=== PATIENT | male | born 1960 | race Caucasian/White ===

== ENCOUNTER 2016-12-02 09:27 | Inpatient (IN) | payer OTHER ==
[~2016-12-02] VITALS: Ht 175.3 cm; Wt 203.4 kg
[2016-12-02] VITALS (11 sets, daily range): BP systolic 117–156; BP diastolic 60–112
[~2016-12-02 09:27] MED LIST: CIPR500T4 PO; GABA-488 PO; HYDR12.56 PO; IBUP-2055 PO; LEVO500T2 PO; LISI-552 PO; MELO15TA39 PO; METF500T4 PO; METF500T8 PO; NYST1POW22 MC; NYST1POW22 TOP; RT-ALBUINH IH; SIMV20TA3 PO
[2016-12-02] MEDS ORDERED: DILTIAZEM DRIP 100 MG in SODIUM CHLORIDE (ADD-VANTAGE) 100 ML IV SCH (10:15)
[2016-12-02] MEDS ORDERED: ASPIRIN 81 MG CHEW (CHILDREN'S ASA) PO ONE (10:15)
[2016-12-02] MEDS ORDERED: ENOXAPARIN 100 MG/1 ML (LOVENOX) SYR SC ONE ×2 (10:15)
[2016-12-02] MEDS ORDERED: ENOXAPARIN 30 MG/0.3 ML (LOVENOX) SYR SC ONE (10:15)
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
--- NOTE | 2016-12-02 10:25 | Diagnostic Imaging Report ---
Portable upright radiograph of the chest. INDICATION: Irregular cardiac beats. FINDINGS: Borderline cardiac size is seen probably exaggerated by the portable AP technique. There is pulmonary vascular congestion. No focal consolidation. No effusion or pneumothorax. The mediastinum and jasmyn appear unremarkable. IMPRESSION: Borderline cardiac size. Pulmonary vascular congestion. Dictated by: Dictated on workstation # [id number]
[2016-12-02 11:13] LABS: BASOPHILS # (AUTO) 0.1 10^3/uL (0.0-0.1); BASOPHILS % (AUTO) 0 % (0-10); EOSINOPHILS # (AUTO) 0.6 10^3/uL (0.0-0.3); EOSINOPHILS % (AUTO) 5 % (0-10); LYMPHOCYTES # (AUTO) 1.8 X 10^3 (1.0-4.0); LYMPHOCYTES % (AUTO) 15 % (12-44); MEAN CORPUSCULAR HEMOGLOBIN 30 PG (25-34); MEAN CORPUSCULAR HGB CONC 32 G/DL (32-36); MEAN CORPUSCULAR VOLUME 94 FL (80-99); MEAN PLATELET VOLUME 9.8 FL (7.4-10.4); MONOCYTES # (AUTO) 0.9 X 10^3 (0.0-1.0); MONOCYTES % (AUTO) 8 % (0-12); NEUTROPHILS # (AUTO) 8.4 X 10^3 (1.8-7.8); NEUTROPHILS % (AUTO) 72 % (42-75); PLATELET COUNT 237 10^3/uL (130-400); RED BLOOD COUNT 5.09 10^6/uL (4.35-5.85); RED CELL DISTRIBUTION WIDTH 16.3 % (10.0-14.5); WHITE BLOOD COUNT 11.7 10^3/uL (4.3-11.0)
[2016-12-02 11:24] LABS: INR 1.1 (0.8-1.4); PROTHROMBIN TIME PATIENT 13.4 SEC (12.2-14.7)
[2016-12-02 11:32] LABS: ALANINE AMINOTRANSFERASE 30 U/L (0-55); ALBUMIN 3.9 GM/DL (3.2-4.5); AMYLASE 77 U/L (25-125); ANION GAP 8 MMOL/L (5-14); ASPARTATE AMINO TRANSFERASE 23 U/L (5-34); BILIRUBIN,TOTAL 1.4 MG/DL (0.1-1.0); BLOOD UREA NITROGEN 14 MG/DL (7-18); BUN/CREATININE RATIO 17; CALCIUM 9.4 MG/DL (8.5-10.1); CARBON DIOXIDE 28 MMOL/L (21-32); CHLORIDE 104 MMOL/L (98-107); CREATINE KINASE 216 U/L (30-200); CREATININE SERUM 0.81 MG/DL (0.60-1.30); GFR ESTIMATED > 60; GLUCOSE 109 MG/DL (70-105); LIPASE 19 U/L (8-78); MAGNESIUM 2.1 MG/DL (1.8-2.4); POTASSIUM 4.2 MMOL/L (3.6-5.0); SODIUM 140 MMOL/L (135-145)
[2016-12-02 11:51] LABS: TROPONIN I < 0.30 NG/ML (<0.30)
[2016-12-02] MEDS ORDERED: FUROSEMIDE 40 MG/4 ML INJ (LASIX) IVP ONE (12:15)
[2016-12-02] MEDS ORDERED: NITROGLYCERIN SUBLINGUAL 0.4 MG TAB (NITROSTAT) SL PRN (14:15)
[2016-12-02] MEDS ORDERED: DILTIAZEM DRIP 100 MG/NS 100 ML IV SCH ×2 (14:15)
[2016-12-02] MEDS ORDERED: CATHETER FLUSH 10 ML SYR IV PRN (14:15)
[2016-12-02] MEDS ORDERED: morphine INJ 4 MG/ML 1 ML (VIAL/SYRINGE) IV PRN (14:15)
[2016-12-02] MEDS ORDERED: HYDR12.5 PO (14:19)
[2016-12-02] MEDS ORDERED: LISI30TA5 PO (14:35)
[2016-12-02] MEDS ORDERED: FLUT1DIS26 IH (14:35)
[2016-12-02] MEDS ORDERED: ASPI-983 PO (14:35)
[2016-12-02] MEDS ORDERED: TIOT18CA2 IH (14:35)
[2016-12-02 14:56] LABS: BILIRUBIN,URINE NEGATIVE (NEGATIVE); KETONES,URINE NEGATIVE (NEGATIVE); LEUKOCYTE ESTERASE ,URINE 3+ (NEGATIVE); NITRITE,URINE NEGATIVE (NEGATIVE); PH,URINE 6 (5-9); PROTEIN,URINE NEGATIVE (NEGATIVE); UROBILINOGEN,URINE NORMAL (NORMAL)
[2016-12-02] MEDS: inSUlin (REGULAR) HUMAN 1 UNIT/0.01 ML (CHARGE PER UNIT) SC SCH ×2 (16:00→21:27)
[2016-12-02] MEDS ORDERED: RIVAROXABAN 20 MG TABLET (XARELTO) PO SCH (17:00)
--- NOTE | 2016-12-02 17:06 | Consultation-Cardiology ---
HPI-Cardiology Cardiology Consultation: Date of Consultation 12/02/16 Date of Admission Attending Physician Jasmyn Corley MD Admitting Physician [facility] Kareen CAMPOVERDE MD HPI: Time Seen by Provider: 17:01 Chief Complaint: Shortness of breath This is a 56-year-old gentleman with history of morbid obesity, active smoking, quit 3 weeks ago, who has been having shortness of breath for at least a month. He has also been having some palpitations for at least a few years. He was found to be in atrial fibrillation with rapid ventricular rate. He denies any chest pain, syncope or near syncope. He has significant lower extremity swelling. According to the patient a physician once told him that he may have had a silent CA in the past. No further details are available. Denies diabetes. Has high blood pressure. Review of Systems-Cardiology Review of Systems Constitutional: No As described under HPI, No no symptoms reported, No chills, No fever, No lightheadedness, No malaise, No tiredness, No weight loss, No weight gain, No other Eyes: No As described under HPI, No no symptoms reported, No blindness, No blurred vision, No contact lenses, No drainage, No decreased acuity, No foreign body sensation, No glasses, No inflammation, No pain, No photophobia, No previous injury, No shadows, No tunnel vision, No other, No vision change Ears/Nose/Throat: No As described under HPI, No no symptoms reported, No chronic hearing loss, No epistaxis, No ear discharge, No ear pain, No loose teeth, No mouth pain, No mouth swelling, No nasal drainage, No nose pain, No recent hearing loss, No throat pain, No throat swelling, No ulcerations, No other Respiratory: shortness of breath Cardiovascular: irregular heart rate Gastrointestinal: No no symptoms reported, No As described under HPI, No abdomen distended, No abdominal pain, No blood streaked bowels, No constipation , No diarrhea, No difficulty swallowing, No nausea, No poor appetite, No poor fluid intake, No rectal bleeding, No vomiting, No other, No nausea/vomiting/ diarrhea, No stool coloration changes Genitourinary: No no symptoms reported, No As described under HPI, No burning, No dysuria, No discharge, No frequency, No flank pain, No hematuria, No incontinence, No pain, No urgency, No other, No urine frequency changes, No urine coloration changes Skin: No no symptoms reported, No As described under HPI, No change in color, No change in hair/nails, No dryness, No lesions, No lumps, No rash, No other, No skin related problems, No ulcerations, rash on exposed areas, No ulcerations on exposed areas Psychiatric/Neurological: No As described under HPI, No anxiety, No depression , No emotional problems, No focal weakness, No headache, No no symptoms reported , No numbness, No other, No pre-existing deficit, No seizure, No syncope, No tingling, No tremors, No weakness [id number] Hx Patient Social History Alcohol Use: Denies Use Recreational Drug Use: Yes Drug of Choice: CURRENT POT SMOKER, HX OF METH USE 30 YEARS AGO Smoking Status: Former Smoker Type Used: Smokeless Tobacco Recent Foreign Travel: No Recent Infectious Disease Expo: No Physical Abuse Screen: No Sexual Abuse: No Immunizations Up To Date Date of Pneumonia Vaccine: Sep 04, 2014 Past Medical History PMH As described under Assessment. Allergies and Home Medications Allergies Coded Allergies: iodine (Verified Allergy, Mild, 09/18/15) Home Medications Albuterol Sulfate 6.7 Gm Hfa.aer.ad, 2 PUFF IH QID PRN for SHORTNESS OF BREATH, (Reported) Aspirin 81 Mg Tablet.dr, 81 MG PO DAILY, (Reported) Fluticasone/Salmeterol 1 Each Blst.w.dev, 1 PUFF IH BID, (Reported) Hydrochlorothiazide 12.5 Mg Capsule, 12.5 MG PO DAILY, (Reported) Lisinopril 30 Mg Tablet, 30 MG PO DAILY, (Reported) Meloxicam 15 Mg Tablet, 15 MG PO DAILY, (Reported) Metformin HCl 500 Mg Tab.er.24h, 500 MG PO 1800, (Reported) Tiotropium Parker 1 Inh Aerp, 1 CAP IH 1800, (Reported) Physical Exam-Cardiology Physical Exam Vital Signs/I&O Vital Sign - Last 12Hours 12/02/16 12/02/16 12/02/16 12/02/16 09:30 09:35 11:09 11:11 Temp 97.5 98.5 98.5 Pulse 120 118 Resp 20 20 B/P (MAP) 137/109 137/109 Pulse Ox 95 95 94 O2 Delivery Nasal Cannula Nasal Cannula O2 Flow Rate 2.00 12/02/16 12/02/16 12/02/16 12/02/16 11:12 11:12 11:13 13:15 Temp 98.5 98.5 98.5 Pulse Ox 95 O2 Delivery Nasal Cannula O2 Flow Rate 2.00 12/02/16 12/02/16 12/02/16 12/02/16 13:15 13:25 14:00 15:00 Temp 98.2 Pulse 112 100 108 97 Resp 18 18 17 B/P (MAP) 141/103 144/86 123/88 Pulse Ox 95 95 94 O2 Delivery Nasal Cannula Nasal Cannula Nasal Cannula O2 Flow Rate 2.00 2.00 2.00 12/02/16 12/02/16 12/02/16 15:05 16:00 16:53 Pulse 98 98 Resp 10 B/P (MAP) 118/91 128/103 Pulse Ox 96 96 O2 Delivery Nasal Cannula Nasal Cannula O2 Flow Rate 2.00 2.00 Capillary Refill : Less Than 3 Seconds Constitutional: No appears stated age, No AAO x 3, No apparent distress, No PERRL, No well-developed, No well-nourished, No other HEENT: No PERRL, No normal ENT inspection, No TMs normal, No pharynx normal, No scleral icterus (R), No scleral icterus (L), No pale conjunctivae (R), No pale conjunctivae (L), No photophobia, No TM abnormal (R), No TM abnormal (L), No pharyngeal erythema, No tonsillar exudate, No other, No discharge, No EOMI, No hearing is well preserved, No hard of hearing, No oral hygience is good, No ulceration, No xanthelasmas are seen Neck: No non-tender, No full range of motion, No supple, No normal inspection, No carotid bruit, No limited range of motion, No lymphadenopathy (R), No lymphadenopathy (L), No tender lateral, No tender midline, No thyromegaly, No other, No carotid pulses are 2 + bilaterally, No with good upstrokes Respiratory: No accessory muscle use, No respiratory distress, No chest tender , No chest expansion is symmetric, No chest is bilaterally symmetric, No lungs clear to percussion, No lungs clear to auscultation, No crackles, No rhonchi, No rales, No stridor, No wheezing, No pleural rub, No other Cardiovascular: irregularly irregular, edema, tachycardia, S1 and S2 Gastrointestinal: No tender, No soft, No round, No distended, No pulsatile mass , No organomegaly, No guarding, No rebound, No tenderness, No hernia, No mass, No audible bowel sounds, No abnormal bowel sounds, No abdominal bruits, No spleenomegaly, No other Rectal: deferred Extremities: significant edema Neurologic/Psychiatric: No music director II-XII nml as tested, No no motor/sensory deficits, No alert, No normal mood/affect, No oriented x 3, No abnormal cerebellar tests, No abnormal music director II-XII, No abnormal gait, No aphasia, No EOM palsy, No facial droop, No motor weakness, No sensory deficit, No depressed affect, No disoriented x 3, No other, No grossly intact, No power is 5/5 both on sides Data Review Labs Laboratory Tests 12/02/16 11:05: White Blood Count 11.7H, Red Blood Count 5.09, Hemoglobin 15.0, Hematocrit 48, Mean Corpuscular Volume 94, Mean Corpuscular Hemoglobin 30, Mean Corpuscular Hemoglobin Concent 32, Red Cell Distribution Width 16.3H, Platelet Count 237, Mean Platelet Volume 9.8, Neutrophils (%) (Auto) 72, Lymphocytes (%) (Auto) 15, Monocytes (%) (Auto) 8, Eosinophils (%) (Auto) 5, Basophils (%) (Auto) 0, Neutrophils # (Auto) 8.4H, Lymphocytes # (Auto) 1.8, Monocytes # (Auto) 0.9, Eosinophils # (Auto) 0.6H, Basophils # (Auto) 0.1, Prothrombin Time 13.4, INR Comment 1.1, Activated Partial Thromboplast Time 31, Sodium Level 140, Potassium Level 4.2, Chloride Level 104, Carbon Dioxide Level 28, Anion Gap 8, Blood Urea Nitrogen 14, Creatinine 0.81, Estimat Glomerular Filtration Rate > 60 , BUN/Creatinine Ratio 17, Glucose Level 109H, Calcium Level 9.4, Magnesium Level 2.1, Total Bilirubin 1.4H, Aspartate Amino Transf (AST/SGOT) 23, Alanine Aminotransferase (ALT/SGPT) 30, Alkaline Phosphatase 100, Total Creatine Kinase 216H, Creatine Kinase MB 3.4, Troponin I < 0.30, B-Type Natriuretic Peptide 155.4H, Total Protein 7.0, Albumin 3.9, Amylase Level 77, Lipase 19, TSH [place] Testing 0.89 12/02/16 14:40: Urine Color YELLOW, Urine Clarity CLEAR, Urine pH 6, Urine Specific [place] 1.020, Urine Protein NEGATIVE, Urine Glucose (UA) NEGATIVE, Urine Ketones NEGATIVE, Urine Nitrite NEGATIVE, Urine Bilirubin NEGATIVE, Urine Urobilinogen NORMAL, Urine Leukocyte Esterase 3+H, Urine RBC (Auto) 1+H, Urine RBC NONE, Urine WBC 5-10H, Urine Squamous Epithelial Cells 2-5, Urine Crystals NONE, Urine Bacteria MODERATEH, Urine Casts NONE, Urine Mucus NEGATIVE, Urine Culture Indicated YES, Urine Opiates Screen NEGATIVE, Urine Oxycodone Screen NEGATIVE, Urine Methadone Screen NEGATIVE, Urine Propoxyphene Screen NEGATIVE, Urine Barbiturates Screen NEGATIVE, Ur Tricyclic Antidepressants Screen NEGATIVE, Urine Phencyclidine Screen NEGATIVE, Urine Amphetamines Screen NEGATIVE, Urine Methamphetamines Screen NEGATIVE, Urine Benzodiazepines Screen NEGATIVE, Urine Cocaine Screen NEGATIVE, Urine Cannabinoids Screen POSITIVEH ECG Impression ECG Initial ECG Impression: Atrial Fibrillation w/RVR A/P-Cardiology Assessment/Admission Diagnosis Atrial fibrillation with rapid ventricular rate, Shortness of breath, Possible coronary artery disease, Venous insufficiency, Sleep apnea, COPD, Active smoking Plan Atrial fibrillation with rapid ventricular rate: Continue Cardizem infusion. Starts Xarelto since CHADSVASC is 2 or 3 (HTN, ?old CA, ? CHF). Start by mouth Cardizem tonight. If good heart rate control, we may be able to taper off Cardizem infusion. Discussed at length pathophysiology of atrial fibrillation. Shortness of breath: Likely due to atrial fibrillation and COPD. We will request echocardiogram. BNP is not significantly elevated. Possible coronary artery disease: Will need a stress test as an outpatient. Venous insufficiency, Sleep apnea: Sleep study as an outpatient. COPD, Active smoking: Quit 3 weeks ago. He was congratulated on non smoking behavior. Thank you for your consultation. Please call me if you have any questions. Rani Campoverde MD, FACP, FACC, FSCAI, FHRS, CCDS Interventional Cardiology Cardiac Electrophysiology Vascular Medicine and Endovascular Interventions Clinical Quality Measures DVT/VTE Risk/Contraindication: Risk Factor Score Per Nursin RFS Level Per Nursing on Admit: 4+=Very High Kareen CAMPOVERDE MD Dec 02, 2016 5:06 pm
[2016-12-02] MEDS ORDERED: FUROSEMIDE 40 MG/4 ML INJ (LASIX) IVP NR (18:00)
[2016-12-02] MEDS ORDERED: DILTIAZEM 240 MG (CARDIZEM CD) CAP PO NR (20:00)
[2016-12-02] MEDS: CATHETER FLUSH 10 ML SYR IV SCH (21:27)
[2016-12-03] VITALS (14 sets, daily range): BP systolic 116–159; BP diastolic 74–111
[2016-12-03 04:27] LABS: BASOPHILS % (AUTO) 0 % (0-10); EOSINOPHILS # (AUTO) 0.5 10^3/uL (0.0-0.3); EOSINOPHILS % (AUTO) 4 % (0-10); LYMPHOCYTES # (AUTO) 2.1 X 10^3 (1.0-4.0); LYMPHOCYTES % (AUTO) 18 % (12-44); MEAN CORPUSCULAR HEMOGLOBIN 30 PG (25-34); MEAN CORPUSCULAR HGB CONC 32 G/DL (32-36); MEAN CORPUSCULAR VOLUME 93 FL (80-99); MEAN PLATELET VOLUME 10.7 FL (7.4-10.4); MONOCYTES # (AUTO) 0.9 X 10^3 (0.0-1.0); MONOCYTES % (AUTO) 8 % (0-12); NEUTROPHILS # (AUTO) 7.9 X 10^3 (1.8-7.8); NEUTROPHILS % (AUTO) 69 % (42-75); PLATELET COUNT 226 10^3/uL (130-400); RED BLOOD COUNT 4.88 10^6/uL (4.35-5.85); RED CELL DISTRIBUTION WIDTH 16.2 % (10.0-14.5); WHITE BLOOD COUNT 11.4 10^3/uL (4.3-11.0)
[2016-12-03 05:24] LABS: ALANINE AMINOTRANSFERASE 30 U/L (0-55); ALBUMIN 3.7 GM/DL (3.2-4.5); ANION GAP 16 MMOL/L (5-14); ASPARTATE AMINO TRANSFERASE 22 U/L (5-34); BILIRUBIN,TOTAL 1.9 MG/DL (0.1-1.0); BLOOD UREA NITROGEN 17 MG/DL (7-18); BUN/CREATININE RATIO 21; CALCIUM 8.6 MG/DL (8.5-10.1); CARBON DIOXIDE 23 MMOL/L (21-32); CHLORIDE 101 MMOL/L (98-107); CHOLESTEROL 162 MG/DL (< 200); CREATININE SERUM 0.81 MG/DL (0.60-1.30); DIRECT LDL 121 MG/DL (1-129); GFR ESTIMATED > 60; GLUCOSE 101 MG/DL (70-105); POTASSIUM 3.7 MMOL/L (3.6-5.0); SODIUM 140 MMOL/L (135-145); TOTAL PROTEIN 6.5 GM/DL (6.4-8.2); TRIGLYCERIDES 142 MG/DL (<150); VLDL CHOLESTEROL 28 MG/DL (5-40)
[2016-12-03] MEDS: inSUlin (REGULAR) HUMAN 1 UNIT/0.01 ML (CHARGE PER UNIT) SC SCH ×2 (06:07→11:03)
[2016-12-03] MEDS: CATHETER FLUSH 10 ML SYR IV SCH ×2 (06:08→14:42)
--- NOTE | 2016-12-03 07:32 | Diagnostic Imaging Report ---
INDICATION: COPD. CHF. COMPARISON: 12/02/2016 FINDINGS: Single frontal view of the chest was obtained. Cardiac silhouette and pulmonary vasculature have an unremarkable appearance on today's exam. The lungs are well aerated and clear. No large pleural effusion or pneumothorax is seen. The visualized osseous structures show no acute abnormalities. IMPRESSION: 1. No acute cardiopulmonary process. Dictated by: Dictated on workstation # [id number]
[2016-12-03] MEDS ORDERED: ASPIRIN E.C. 325 MG (ECOTRIN) TABLET PO SCH (09:00)
[2016-12-03] MEDS ORDERED: DILTIAZEM 120 MG (CARDIZEM CD) CAP PO SCH (09:00)
--- NOTE | 2016-12-03 12:27 | Cardiology Progress Note ---
Cardiology SOAP Progress Note Subjective: No complaints Objective: I&O/Vital Signs Vital Sign - Last 12Hours 12/03/16 12/03/16 12/03/16 12/03/16 01:00 01:00 02:00 03:00 Pulse 92 88 106 102 Resp 22 13 13 B/P (MAP) 140/96 118/105 Pulse Ox 92 92 92 O2 Delivery Nasal Cannula Nasal Cannula Nasal Cannula O2 Flow Rate 2.00 2.00 2.00 12/03/16 12/03/16 12/03/16 12/03/16 04:00 04:00 04:00 05:00 Temp 97.8 Pulse 96 96 Resp 22 22 B/P (MAP) 120/74 159/105 Pulse Ox 91 91 O2 Delivery Nasal Cannula Nasal Cannula Nasal Cannula O2 Flow Rate 2.00 2.00 2.00 12/03/16 12/03/16 12/03/16 12/03/16 06:00 07:00 08:00 08:00 Temp 98.3 Pulse 82 60 Resp 17 B/P (MAP) 145/75 Pulse Ox 91 O2 Delivery Nasal Cannula Nasal Cannula Nasal Cannula O2 Flow Rate 2.00 2.00 2.00 12/03/16 12/03/16 12:00 12:00 Temp 98.5 B/P (MAP) O2 Delivery Nasal Cannula Nasal Cannula O2 Flow Rate 2.00 2.00 Intake and Output 12/03/16 00:00 Intake Total 1000 ml Output Total 3800 ml Balance -2800 ml Weight (Pounds): 448 Weight (Ounces): 8.0 Weight (Calculated Kilograms): 203.661749 Constitutional: No appears stated age, No AAO x 3, No apparent distress, No PERRL, No well-developed, No well-nourished, No other Respiratory: No accessory muscle use, No respiratory distress, No chest tender , No chest expansion is symmetric, No chest is bilaterally symmetric, No lungs clear to percussion, No lungs clear to auscultation, No crackles, No rhonchi, No rales, No stridor, No wheezing, No pleural rub, No other Cardiovascular: irregularly irregular, edema, tachycardia, S1 and S2 Gastrointestional: No tender, No soft, No round, No distended, No pulsatile mass, No organomegaly, No guarding, No rebound, No tenderness, No hernia, No mass, No audible bowel sounds, No abnormal bowel sounds, No abdominal bruits, No spleenomegaly, No other Extremities: significant edema Neurologic/Psychiatric: No talent scout II-XII nml as tested, No no motor/sensory deficits, No alert, No normal mood/affect, No oriented x 3, No abnormal cerebellar tests, No abnormal talent scout II-XII, No abnormal gait, No aphasia, No EOM palsy, No facial droop, No motor weakness, No sensory deficit, No depressed affect, No disoriented x 3, No other, No grossly intact, No power is 5/5 both on sides Results/Procedures: Labs Laboratory Tests 12/02/16 14:40: Urine Color YELLOW, Urine Clarity CLEAR, Urine pH 6, Urine Specific [place] 1.020, Urine Protein NEGATIVE, Urine Glucose (UA) NEGATIVE, Urine Ketones NEGATIVE, Urine Nitrite NEGATIVE, Urine Bilirubin NEGATIVE, Urine Urobilinogen NORMAL, Urine Leukocyte Esterase 3+H, Urine RBC (Auto) 1+H, Urine RBC NONE, Urine WBC 5-10H, Urine Squamous Epithelial Cells 2-5, Urine Crystals NONE, Urine Bacteria MODERATEH, Urine Casts NONE, Urine Mucus NEGATIVE, Urine Culture Indicated YES, Urine Opiates Screen NEGATIVE, Urine Oxycodone Screen NEGATIVE, Urine Methadone Screen NEGATIVE, Urine Propoxyphene Screen NEGATIVE, Urine Barbiturates Screen NEGATIVE, Ur Tricyclic Antidepressants Screen NEGATIVE, Urine Phencyclidine Screen NEGATIVE, Urine Amphetamines Screen NEGATIVE, Urine Methamphetamines Screen NEGATIVE, Urine Benzodiazepines Screen NEGATIVE, Urine Cocaine Screen NEGATIVE, Urine Cannabinoids Screen POSITIVEH 12/02/16 16:08: Glucometer 102 12/02/16 17:05: Troponin I < 0.30 12/02/16 21:15: Glucometer 96 12/03/16 03:18: White Blood Count 11.4H, Red Blood Count 4.88, Hemoglobin 14.7, Hematocrit 46, Mean Corpuscular Volume 93, Mean Corpuscular Hemoglobin 30, Mean Corpuscular Hemoglobin Concent 32, Red Cell Distribution Width 16.2H, Platelet Count 226, Mean Platelet Volume 10.7H, Neutrophils (%) (Auto) 69, Lymphocytes (%) (Auto) 18 , Monocytes (%) (Auto) 8, Eosinophils (%) (Auto) 4, Basophils (%) (Auto) 0, Neutrophils # (Auto) 7.9H, Lymphocytes # (Auto) 2.1, Monocytes # (Auto) 0.9, Eosinophils # (Auto) 0.5H, Basophils # (Auto) 0.0, Sodium Level 140, Potassium Level 3.7, Chloride Level 101, Carbon Dioxide Level 23, Anion Gap 16H, Blood Urea Nitrogen 17, Creatinine 0.81, Estimat Glomerular Filtration Rate > 60, BUN/ Creatinine Ratio 21, Glucose Level 101, Calcium Level 8.6, Total Bilirubin 1.9H , Aspartate Amino Transf (AST/SGOT) 22, Alanine Aminotransferase (ALT/SGPT) 30, Alkaline Phosphatase 90, Total Protein 6.5, Albumin 3.7, Triglycerides Level 142 , Cholesterol Level 162, LDL Cholesterol Direct 121, VLDL Cholesterol 28, HDL Cholesterol 30L Microbiology 12/02/16 Urine Culture - Preliminary, Resulted Gram Negative Esvin A/P: Assessment/Dx: Atrial fibrillation with rapid ventricular rate, Shortness of breath, Possible coronary artery disease, Venous insufficiency, Sleep apnea, COPD, Active smoking Plan: Atrial fibrillation with rapid ventricular rate: Better controlled today. Was started on by mouth Cardizem last night. Cardizem infusion was switched off rewind operator. We gave another dose of Cardizem 120 mg this morning. He will go out on Cardizem CD 360 mg daily. He will also continue oral anticoagulation therapy. Can see us in the office in the next one month. Shortness of breath: Likely due to atrial fibrillation and COPD. We will request echocardiogram. BNP is not significantly elevated. Possible coronary artery disease: Will need a stress test as an outpatient. Venous insufficiency, Sleep apnea: Sleep study as an outpatient. COPD, Thank you for your consultation. Please call me if you have any questions. Rani Campoverde MD, FACP, FACC, FSCAI, FHRS, CCDS Interventional Cardiology Cardiac Electrophysiology Vascular Medicine and Endovascular Interventions Kareen CAMPOVERDE MD Dec 03, 2016 12:27
[2016-12-03] MEDS ORDERED: DILT360C29 PO (12:38)
[2016-12-03] MEDS ORDERED: RIVA20TA PO (12:38)
--- NOTE | 2016-12-03 12:46 | Discharge Instructions ---
Discharge Inst-[facility] Discharge Medications New, Converted or Re-Newed RX: Other (Diltiazem will be at [facility] from the repository) New Medications: Diltiazem HCl (Diltiazem 24Hr Cd) 360 Mg Cap.er.24h 360 MG PO DAILY for 30 Days, #30 CAP Rivaroxaban (Xarelto) 20 Mg Tablet 20 MG PO DAILY@1700 for 30 Days, #30 TAB Continued Medications: Albuterol Sulfate (Proventil Hfa) 6.7 Gm Hfa.aer.ad 2 PUFF IH QID PRN for SHORTNESS OF BREATH, INHALER Aspirin (Aspirin EC) 81 Mg Tablet.dr 81 MG PO DAILY, TAB Fluticasone/Salmeterol (Advair 250-50 Diskus) 1 Each Blst.w.dev 1 PUFF IH BID Hydrochlorothiazide (Hydrochlorothiazide) 12.5 Mg Capsule 12.5 MG PO DAILY, CAP Lisinopril (Lisinopril) 30 Mg Tablet 30 MG PO DAILY, TAB Meloxicam (Meloxicam) 15 Mg Tablet 15 MG PO DAILY, TAB Metformin HCl (Metformin HCl ER) 500 Mg Tab.er.24h 500 MG PO 1800, TAB Tiotropium [place] (Spiriva) 1 Inh Aerp 1 CAP IH 1800, INHALER Patient Instructions Goal/Follow Up Appt: You have a follow up appt with Samira Drummond on December 08 @1120 AM Patient Instructions: - Make sure to take your new medications - Call with any concerns Return to The Hospital For: - Increasing shortness of breath - Chest pain - Bleeding Activity & Diet Discharge Diet: Low Sodium Diet, Cardiac Diet Activity as Tolerated: Yes Copy Copies To 1: [facility] GIUSEPPE Lester MD Dec 03, 2016 12:46
--- NOTE | 2016-12-03 12:52 | Short Stay Summary ---
HPI History of Present Illness: 56 yo morbidly obese M that presented to ER after ECG in clinic showed atrial fibrillation. Patient states that he has been having about 1 month of increasing shortness of breath. Yesterday was called by PCP that his CXR looked like he had an enlarged heart and needed an ECG. ECG then showed Atrial fibrillation with RVR rate 120s Source: patient, family Exam Limitations: no limitations Date seen by provider: Dec 03, 2016 Time Seen by Provider: 10:45 Attending Physician Giuseppe Corley MD PCP [facility] Consult Date of Admission Dec 02, 2016 at 12:10 Home Medications Home Medications Reviewed patient Home Medication Reconciliation Form Allergies Coded Allergies: iodine (Verified Allergy, Mild, 09/18/15) OOA-Mmqise-Rawcgz Hx Patient Social History Alcohol Use: Denies Use Recreational Drug Use: Yes (THC) Drug of Choice: CURRENT POT SMOKER, HX OF METH USE 30 YEARS AGO Smoking Status: Current Everyday Smoker (2 PPD) Type Used: Cigarettes Recent Foreign Travel: No Contact w/other who traveled: No Recent Hopitalizations: No Recent Infectious Disease Expo: No Physical Abuse Screen: No Sexual Abuse: No Immunizations Up To Date Date of Pneumonia Vaccine: Sep 04, 2014 Past Medical History Morbid Obesity COPD Review of Systems ([facility]) Constitutional: weakness, No weight gain, No weight loss EENTM: no symptoms reported Respiratory: dyspnea on exertion, No hemoptysis, orthopnea, short of breath Cardiovascular: No chest pain, No edema, No palpitations Gastrointestinal: no symptoms reported, No abdominal pain, No constipation, No diarrhea, No nausea, No vomiting Genitourinary: no symptoms reported, No dysuria, No frequency, No hematuria Musculoskeletal: no symptoms reported, No back pain, No joint pain, No muscle pain Skin: no symptoms reported Psychiatric/Neurological: No Symptoms Reported, Denies Anxiety, Denies Depressed Reviewed Test Results Reviewed Test Results Lab Laboratory Tests Test 12/02/16 14:40 12/02/16 16:08 12/02/16 17:05 12/02/16 21:15 Range/Units Urine Color YELLOW Urine Clarity CLEAR Urine pH 6 5-9 Urine Specific [place] 1.020 1.016-1.022 Urine Protein NEGATIVE NEGATIVE Urine Glucose (UA) NEGATIVE NEGATIVE Urine Ketones NEGATIVE NEGATIVE Urine Nitrite NEGATIVE NEGATIVE Urine Bilirubin NEGATIVE NEGATIVE Urine Urobilinogen NORMAL NORMAL MG/DL Urine Leukocyte Esterase 3+ H NEGATIVE Urine RBC (Auto) 1+ H NEGATIVE Urine RBC NONE /HPF Urine WBC 5-10 H /HPF Urine Squamous Epithelial Cells 2-5 /HPF Urine Crystals NONE /LPF Urine Bacteria MODERATE H /HPF Urine Casts NONE /LPF Urine Mucus NEGATIVE /LPF Urine Culture Indicated YES Urine Opiates Screen NEGATIVE NEGATIVE Urine Oxycodone Screen NEGATIVE NEGATIVE Urine Methadone Screen NEGATIVE NEGATIVE Urine Propoxyphene Screen NEGATIVE NEGATIVE Urine Barbiturates Screen NEGATIVE NEGATIVE Ur Tricyclic Antidepressants Screen NEGATIVE NEGATIVE Urine Phencyclidine Screen NEGATIVE NEGATIVE Urine Amphetamines Screen NEGATIVE NEGATIVE Urine Methamphetamines Screen NEGATIVE NEGATIVE Urine Benzodiazepines Screen NEGATIVE NEGATIVE Urine Cocaine Screen NEGATIVE NEGATIVE Urine Cannabinoids Screen POSITIVE H NEGATIVE Glucometer 102 96 70-110 MG/DL Troponin I < 0.30 <0.30 NG/ML Test 12/03/16 03:18 12/03/16 10:39 Range/Units White Blood Count 11.4 H 4.3-11.0 10^3/uL Red Blood Count 4.88 4.35-5.85 10^6/uL Hemoglobin 14.7 13.3-17.7 G/DL Hematocrit 46 40-54 % Mean Corpuscular Volume 93 80-99 FL Mean Corpuscular Hemoglobin 30 25-34 PG Mean Corpuscular Hemoglobin Concent 32 32-36 G/DL Red Cell Distribution Width 16.2 H 10.0-14.5 % Platelet Count 226 130-400 10^3/uL Mean Platelet Volume 10.7 H 7.4-10.4 FL Neutrophils (%) (Auto) 69 42-75 % Lymphocytes (%) (Auto) 18 12-44 % Monocytes (%) (Auto) 8 0-12 % Eosinophils (%) (Auto) 4 0-10 % Basophils (%) (Auto) 0 0-10 % Neutrophils # (Auto) 7.9 H 1.8-7.8 X 10^3 Lymphocytes # (Auto) 2.1 1.0-4.0 X 10^3 Monocytes # (Auto) 0.9 0.0-1.0 X 10^3 Eosinophils # (Auto) 0.5 H 0.0-0.3 10^3/uL Basophils # (Auto) 0.0 0.0-0.1 10^3/uL Sodium Level 140 135-145 MMOL/L Potassium Level 3.7 3.6-5.0 MMOL/L Chloride Level 101 98-107 MMOL/L Carbon Dioxide Level 23 21-32 MMOL/L Anion Gap 16 H 5-14 MMOL/L Blood Urea Nitrogen 17 7-18 MG/DL Creatinine 0.81 0.60-1.30 MG/DL Estimat Glomerular Filtration Rate > 60 BUN/Creatinine Ratio 21 Glucose Level 101 70-105 MG/DL Calcium Level 8.6 8.5-10.1 MG/DL Total Bilirubin 1.9 H 0.1-1.0 MG/DL Aspartate Amino Transf (AST/SGOT) 22 5-34 U/L Alanine Aminotransferase (ALT/SGPT) 30 0-55 U/L Alkaline Phosphatase 90 40-136 U/L Total Protein 6.5 6.4-8.2 GM/DL Albumin 3.7 3.2-4.5 GM/DL Triglycerides Level 142 <150 MG/DL Cholesterol Level 162 < 200 MG/DL LDL Cholesterol Direct 121 1-129 MG/DL VLDL Cholesterol 28 5-40 MG/DL HDL Cholesterol 30 L 40-60 MG/DL Glucometer 101 70-110 MG/DL Radiology Date of Exam: 12/02/16 CHEST 1 VIEW, AP/PA ONLY Portable upright radiograph of the chest. INDICATION: Irregular cardiac beats. FINDINGS: Borderline cardiac size is seen probably exaggerated by the portable AP technique. There is pulmonary vascular congestion. No focal consolidation. No effusion or pneumothorax. The mediastinum and jasmyn appear unremarkable. IMPRESSION: Borderline cardiac size. Pulmonary vascular congestion. Physical Exam-([facility]) Physical Exam Vital Signs VS - Last 72 Hours, by Label 12/02/16 12/02/16 12/02/16 12/02/16 09:30 09:35 11:09 11:11 Temp 97.5 98.5 98.5 Pulse 120 118 Resp 20 20 B/P (MAP) 137/109 137/109 Pulse Ox 95 95 94 O2 Delivery Nasal Cannula Nasal Cannula O2 Flow Rate 2.00 12/02/16 12/02/16 12/02/16 12/02/16 11:12 11:12 11:13 12:50 Temp 98.5 98.5 98.5 97.5 Pulse 80 Resp 18 Pulse Ox 98 12/02/16 12/02/16 12/02/16 12/02/16 13:15 13:15 13:25 14:00 Temp 98.2 Pulse 112 100 108 Resp 18 18 B/P (MAP) 141/103 144/86 Pulse Ox 95 95 95 O2 Delivery Nasal Cannula Nasal Cannula Nasal Cannula O2 Flow Rate 2.00 2.00 2.00 12/02/16 12/02/16 12/02/16 12/02/16 15:00 15:05 16:00 16:00 Pulse 97 98 Resp 17 10 B/P (MAP) 123/88 118/91 Pulse Ox 94 96 96 O2 Delivery Nasal Cannula Nasal Cannula Nasal Cannula Nasal Cannula O2 Flow Rate 2.00 2.00 2.00 2.00 12/02/16 12/02/16 12/02/16 12/02/16 16:00 16:53 17:00 18:00 Temp 98.4 Pulse 98 91 103 Resp 20 21 B/P (MAP) 128/103 138/80 130/91 Pulse Ox 96 95 O2 Delivery Nasal Cannula Nasal Cannula Nasal Cannula O2 Flow Rate 2.00 2.00 2.00 12/02/16 12/02/16 12/02/16 12/02/16 19:00 19:00 19:58 20:00 Temp 98.5 Pulse 99 115 Resp 22 B/P (MAP) 129/60 Pulse Ox 91 O2 Delivery Nasal Cannula Nasal Cannula O2 Flow Rate 2.00 2.00 12/02/16 12/02/16 12/02/16 12/02/16 20:00 20:00 21:00 22:00 Pulse 93 101 135 Resp 22 22 27 B/P (MAP) 147/71 139/77 117/78 Pulse Ox 91 94 97 O2 Delivery Nasal Cannula Nasal Cannula Nasal Cannula Nasal Cannula O2 Flow Rate 2.00 2.00 2.00 2.00 12/02/16 12/03/16 12/03/16 12/03/16 23:00 00:00 00:00 00:00 Temp 98.3 Pulse 117 123 Resp 14 30 B/P (MAP) 156/112 Pulse Ox 94 90 O2 Delivery Nasal Cannula Nasal Cannula Nasal Cannula O2 Flow Rate 2.00 2.00 2.00 12/03/16 12/03/16 12/03/16 12/03/16 00:02 01:00 01:00 02:00 Pulse 98 92 88 106 Resp 22 13 B/P (MAP) 176/103 140/96 Pulse Ox 92 92 O2 Delivery Nasal Cannula Nasal Cannula O2 Flow Rate 2.00 2.00 12/03/16 12/03/16 12/03/16 12/03/16 03:00 04:00 04:00 04:00 Temp 97.8 Pulse 102 96 Resp 13 22 B/P (MAP) 118/105 120/74 Pulse Ox 92 91 O2 Delivery Nasal Cannula Nasal Cannula Nasal Cannula O2 Flow Rate 2.00 2.00 2.00 12/03/16 12/03/16 12/03/16 12/03/16 05:00 06:00 07:00 08:00 Pulse 96 82 60 Resp 22 17 B/P (MAP) 159/105 145/75 Pulse Ox 91 91 O2 Delivery Nasal Cannula Nasal Cannula Nasal Cannula O2 Flow Rate 2.00 2.00 2.00 12/03/16 12/03/16 12/03/16 08:00 12:00 12:00 Temp 98.3 98.5 B/P (MAP) O2 Delivery Nasal Cannula Nasal Cannula Nasal Cannula O2 Flow Rate 2.00 2.00 2.00 Capillary Refill : Less Than 3 Seconds General Appearance: WD/WN, mild distress (with activity), obese HEENT: PERRL/EOMI Neck: non-tender, full range of motion, supple, normal inspection Respiratory: chest non-tender, normal breath sounds, no respiratory distress Cardiovascular: normal peripheral pulses, no edema, no murmur, irregularly irregular Gastrointestinal: normal bowel sounds, non tender, soft, no organomegaly Extremities: normal range of motion, non-tender, normal inspection, no pedal edema, no calf tenderness, normal capillary refill Neurologic/Psychiatric: 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 as tested, no motor/sensory deficits, alert, normal mood/affect, oriented x 3 Skin: normal color, warm/dry Lymphatic: no adenopathy Short Stay Diagnosis Discharge Diagnosis-Short Stay Admission Diagnosis Atrial Fibrillation with RVR Morbid Obesity Respiratory Distress with Hypoxia COPD HTN Final Discharge Diagnosis See Above Conclusion Plan 56 yo M that presents to ED with A Fib with RVR Plan Atrial fibrillation with RVR - Regular rate this AM - Started on PO diltiazem per Cardiology - Started on anti coagulation due to well score - Echo pending Morbid obesity - Needs outpatient sleep study as this is likely contributing to Atrial fibrillation Respiratory Distress with Hypoxia - titrate off oxygen, A/A nebs scheduled COPD - Restarted home medications HTN - Restarted home medications Home today with close followup Clinical Quality Measures DVT/VTE Risk/Contraindication: Risk Factor Score Per Nursin RFS Level Per Nursing on Admit: 4+=Very High Copy Copies To 1: [facility] Lester MD Dec 03, 2016 12:52
[2016-12-03] MEDS ORDERED: RT-ALBUTEROL/IPRATROPIUM 3 ML (DUONEB) VIAL INH SCH (14:00)
[2016-12-04] MEDS ORDERED: lisINopril 20 MG (ZESTRIL) TAB PO SCH (09:00)
[2016-12-04] MEDS ORDERED: lisINopril 10 MG (PRINIVIL) TAB PO SCH (09:00)
[2016-12-04] MEDS ORDERED: HYDROCHLOROTHIAZIDE 12.5 MG (HCTZ) CAP PO SCH (09:00)
== END 2016-12-03 15:50 | disposition home or self-care (01) | DRG 309 ==
LOC: EDUNIT# 09:27 → ER 09:29 → ICU 12:10
PROVIDERS: ADMIT Family Medicine; ATTEND Family Medicine
DX: I48.91 Unspecified atrial fibrillation (principal); J44.9 Chronic obstructive pulmonary disease, unspecified; I87.2 Venous insufficiency (chronic) (peripheral); I10 Essential (primary) hypertension; E66.01 Morbid (severe) obesity due to excess calories; Z68.44 Body mass index [BMI] 60.0-69.9, adult; E11.9 Type 2 diabetes mellitus without complications; L03.115 Cellulitis of right lower limb; L03.116 Cellulitis of left lower limb; B19.20 Unspecified viral hepatitis C without hepatic coma; F12.90 Cannabis use, unspecified, uncomplicated; F17.210 Nicotine dependence, cigarettes, uncomplicated; R07.9 Chest pain, unspecified; G47.30 Sleep apnea, unspecified
CPT/HCPCS: 36415; 71010; 80053; 80061; 80306; 81000; 82150; 82550; 82553; 82962; 83690; 83735; 83880; 84443; 84484; 85025; 85610; 85730; 87077; 87081; 87088; 87186; 93005; 93041; 93306; 96365; 96366; 96372

== ENCOUNTER 2017-01-15 19:15 | Outpatient (CLI) | payer SELFPAY ==
[~2017-01-15 19:15] MED LIST changes: +ASPI-983 PO; +DILT360C29 PO; +FLUT1DIS26 IH; +HYDR12.5 PO; +LISI30TA5 PO; +RIVA20TA PO; +TIOT18CA2 IH
== END 2017-01-16 06:55 | disposition home or self-care (01) ==
LOC: SLEEP 19:15
PROVIDERS: ATTEND Internal Medicine Cardiovascular Disease
DX: G47.33 Obstructive sleep apnea (adult) (pediatric) (principal)
CPT/HCPCS: 95810

== ENCOUNTER 2017-01-27 20:47 | Outpatient (CLI) | payer OTHER | END 2017-01-28 06:55 | disposition home or self-care (01) | LOC: SLEEP 20:47 | PROVIDERS: ATTEND Internal Medicine Cardiovascular Disease | DX: G47.33 Obstructive sleep apnea (adult) (pediatric) (principal) | CPT/HCPCS: 95811 ==

== ENCOUNTER → 2017-02-02 | Outpatient (CLI) | payer OTHER ==
[~2017-02-02] VITALS: Ht 177.8 cm; Wt 192.3 kg
[~2017-02-02] MED LIST changes: +ATOR20TA49 PO; +BUSP10TA95 PO; +CATHETER FLUSH 10 ML SYR IV PRN; +DRON400T2 PO; +FURO20TA4 PO; +IBUP-30 PO; +METO-333 PO; +REGADENOSON 0.4 MG/5 ML SYR (LEXISCAN) IV ONE; +UMEC62.5 IH; +meTOprolol 5 MG/5 ML (LOPRESSOR) VIAL IV ONE; +meTOprolol 5 MG/5 ML (LOPRESSOR) VIAL ONE
--- NOTE | 2017-02-03 09:42 | STRESS TEST ---
DATE OF SERVICE: 02/02/2017 LEXISCAN MYOVIEW STRESS TEST REPORT REFERRING PHYSICIAN: [facility] Baseline heart rate is 130, baseline blood pressure is 150/90. Baseline EKG is atrial fibrillation with no EKG changes. In summary, the patient was injected with 10.6 mCi of technetium-99 Myoview and the resting images were obtained. Then, the patient received 0.4 mg of Lexiscan followed by 31.3 mCi of technetium-99 Myoview. Later during the test, patient was given 5 mg of IV Lopressor due to tachycardia. During recovery, heart rate and blood pressure returned to baseline. EKG returned to baseline. The resting and stress images were reviewed and compared in the short axis, horizontal long axis, and vertical long axis views. Review of the images showed diaphragmatic attenuation with no reversible ischemia involving the mid to apical inferior wall and inferolateral wall. SSS is 6, SDS 3, TID value 1.08. On the gated images, the left ventricle appeared to be normal size with normal contractility, calculated ejection fraction 49%, gated images are unreliable due to underlying atrial fibrillation. CONCLUSION: 1. The patient tolerated Lexiscan well. 2. Baseline atrial fibrillation persisted throughout test. 3. Diaphragmatic attenuation with reversible ischemia involving the mid to apical inferior wall and inferolateral wall. 4. Normal left ventricular size with hypokinesia of the inferior wall calculated ejection fraction 49%. Job ID: [id number] DocumentID: [id number] Dictated Date: 02/02/2017 15:29:43 Tour Conductor Date: 02/02/2017 19:57:22 Dictated By: KASEY VALDES MD
== END ==
LOC: CARD 12:07
PROVIDERS: ATTEND Internal Medicine Cardiovascular Disease
DX: R06.02 Shortness of breath; I48.91 Unspecified atrial fibrillation; R07.9 Chest pain, unspecified; J44.9 Chronic obstructive pulmonary disease, unspecified; I50.9 Heart failure, unspecified
CPT/HCPCS: 78452; 93017

== ENCOUNTER 2017-02-07 06:40 | Day surgery (SDC) | payer OTHER ==
[~2017-02-07] VITALS: Ht 177.8 cm; Wt 192.3 kg
[2017-02-07] VITALS (10 sets, daily range): BP systolic 117–145; BP diastolic 77–99
[~2017-02-07 06:40] MED LIST changes: -ATOR20TA49 PO; -BUSP10TA95 PO; -CATHETER FLUSH 10 ML SYR IV PRN; -DRON400T2 PO; -FURO20TA4 PO; -IBUP-30 PO; -METO-333 PO; -REGADENOSON 0.4 MG/5 ML SYR (LEXISCAN) IV ONE; -UMEC62.5 IH; -meTOprolol 5 MG/5 ML (LOPRESSOR) VIAL IV ONE; -meTOprolol 5 MG/5 ML (LOPRESSOR) VIAL ONE
--- OUTSIDE RECORDS SUMMARY | 2017-02-07 06:44 | XMS REPORT ---
Author Author HENRY REBOLLEDO Organization [facility] Address Unknown Phone Unavailable Care Team Providers Care Hotel Services Supervisor Name Role Phone HENRY REBOLLEDO Unavailable Unavailable PROBLEMS Type Condition ICD9-CM Code [id number] Code Onset Dates Condition Status SNOMED Code Problem Hyperthyroidism, subclinical E05.90 Active 195319240 Problem Metabolic syndrome X E88.81 Active 302132944 Problem Hematuria R31.9 Active 33555629 Problem Persistent atrial fibrillation I48.1 Active 104085303 Problem Anxiety F41.9 Active 24810387 Problem Dyspnea on exertion R06.09 Active 06976430 Problem Recurrent UTI N39.0 Active 128311535 Problem Cardiomegaly I51.7 Active 1335503 Problem Lymphedema I89.0 Active 377524117 Problem Tobacco abuse counseling Z71.6 Active 862562798 Problem Tobacco abuse Z72.0 Active 00936609 Problem Essential hypertension with goal blood pressure less than 130\/80 I10 Active 56157459 Problem Sciatica of right side M54.31 Active 47525955 Problem Bronchiolitis J21.9 Active 7803781 Problem Pure hypercholesterolemia E78.0 Active 813135838 Problem Morbid obesity due to excess calories E66.01 Active 517508792 Problem Acute cystitis without hematuria N30.00 Active 12007346 ALLERGIES Unknown Allergies SOCIAL HISTORY No smoking Hx information available PLAN OF CARE VITAL SIGNS MEDICATIONS Unknown Medications RESULTS No Results PROCEDURES No Known procedures IMMUNIZATIONS No Known Immunizations
--- OUTSIDE RECORDS SUMMARY | 2017-02-07 06:44 | XMS REPORT ---
Author Author [facility] Address [address] [place] [address] Care Team Providers Care Clerk Rating Name Role Phone ALDY CARPENTER Unavailable PROBLEMS Type Condition ICD9-CM Code DLH27-QL Code Onset Dates Condition Status SNOMED Code Problem Hyperthyroidism, subclinical E05.90 Active 594336419 Problem Metabolic syndrome X E88.81 Active 740258242 Problem Hematuria R31.9 Active 53046308 Problem Persistent atrial fibrillation I48.1 Active 201858741 Problem Anxiety F41.9 Active 27616875 Problem Dyspnea on exertion R06.09 Active 55280490 Problem Recurrent UTI N39.0 Active 784759944 Problem Cardiomegaly I51.7 Active 3661430 Problem Lymphedema I89.0 Active 617461402 Problem Tobacco abuse counseling Z71.6 Active 039967078 Problem Tobacco abuse Z72.0 Active 09945131 Problem Essential hypertension with goal blood pressure less than 130\/80 I10 Active 49180740 Problem Sciatica of right side M54.31 Active 94132628 Problem Bronchiolitis J21.9 Active 9164981 Problem Pure hypercholesterolemia E78.0 Active 500808936 Problem Morbid obesity due to excess calories E66.01 Active 478571629 Problem Acute cystitis without hematuria N30.00 Active 90697929 ALLERGIES Substance Reaction Event Type Date Status shrimp anaphylaxis Non Drug Allergy Apr, Active SOCIAL HISTORY No smoking Hx information available PLAN OF CARE Activity Details Follow Up 3 Months Reason:b/p VITAL SIGNS Height 69 in 2016-05-04 Weight 404.2 lbs 2016-05-04 Temperature 97.6 degrees Fahrenheit 2016-05-04 Heart Rate 72 bpm 2016-05-04 Respiratory Rate 17 2016-05-04 BMI 59.68 kg/m2 2016-05-04 Blood pressure systolic 134 mmHg 2016-05-04 Blood pressure diastolic 76 mmHg 2016-05-04 MEDICATIONS Medication Instructions Dosage Frequency Start Date End Date Duration Status Simvastatin 20 mg Orally Once a day 1 tablet in the evening 24h 14 Apr, 2016 Active MetFORMIN HCl ER 500 MG Orally Once a day 1 tablet with evening meal 24h Aug, Active Hydrochlorothiazide 12.5 MG Orally Once a day 1 capsule 24h Active Lisinopril 30 MG Orally Once a day 1 tablet 24h Active Proventil HFA 108 (90 Base) MCG/ACT Inhalation 4 times a day as needed 2 puffs Active Meloxicam 15 MG Orally Once a day 1 tablet as needed for pain 24h Active RESULTS Name Result Date Reference Range UA LONG DIP (IN HOUSE) 2016-05-04 Lot # [id number] Exp date 11/2016 Clarity clear Color dark Yellow Odor none GLU NEG ERNIE NEG KET NEG SG >1.030 BLO TRACE INTACT pH 5.5 Protein NEG URO 0.2 NIT NEG YANG NEG Lot # Exp date CULTURE, URINE 2016-05-04 Urine Culture, Routine Final report Result 1 Antimicrobial Susceptibility PROCEDURES Procedure Date Ordered Related Diagnosis Body Site Office Visit, Est Pt., Level 3 May 04, 2016 URINALYSIS, AUTO, W/O SCOPE May 04, 2016 URINE CULTURE/COLONY COUNT May 04, 2016 IMMUNIZATIONS No Known Immunizations
--- OUTSIDE RECORDS SUMMARY | 2017-02-07 06:44 | XMS REPORT ---
Author Author LADY CARPENTER [facility] [place] Address [address] [place] [address] Care Team Providers Care Reed Worker Name Role Phone LADY CARPENTER Unavailable PROBLEMS Type Condition ICD9-CM Code [id number] Code Onset Dates Condition Status SNOMED Code Problem Hyperthyroidism, subclinical E05.90 Active 180633450 Problem Metabolic syndrome X E88.81 Active 050065549 Problem Hematuria R31.9 Active 95521110 Problem Persistent atrial fibrillation I48.1 Active 208986269 Problem Anxiety F41.9 Active 95821702 Problem Dyspnea on exertion R06.09 Active 05151894 Problem Recurrent UTI N39.0 Active 397555278 Problem Cardiomegaly I51.7 Active 4025101 Problem Lymphedema I89.0 Active 595403146 Problem Tobacco abuse counseling Z71.6 Active 133965347 Problem Tobacco abuse Z72.0 Active 46524899 Problem Essential hypertension with goal blood pressure less than 130\/80 I10 Active 76578824 Problem Sciatica of right side M54.31 Active 25745732 Problem Bronchiolitis J21.9 Active 7833252 Problem Pure hypercholesterolemia E78.0 Active 691555678 Problem Morbid obesity due to excess calories E66.01 Active 770863199 Problem Acute cystitis without hematuria N30.00 Active 28122316 ALLERGIES Unknown Allergies SOCIAL HISTORY No smoking Hx information available PLAN OF CARE VITAL SIGNS MEDICATIONS Medication Instructions Dosage Frequency Start Date End Date Duration Status Levaquin 500 MG Orally Once a day 1 tablet 24h Apr, Active RESULTS No Results PROCEDURES No Known procedures IMMUNIZATIONS No Known Immunizations
[2017-02-07] MEDS ORDERED: NS IV 1000 ML 1,000 ML ONE (06:49)
[2017-02-07] MEDS ORDERED: HEParin (CATH LAB) 2,000 ML IV ONE (06:49)
[2017-02-07] MEDS ORDERED: methylPREDNISolone 125 MG (Solu-MEDROL) VIAL ONE (07:17)
[2017-02-07 07:24] LABS: MEAN PLATELET VOLUME 9.8 FL (7.4-10.4); RED BLOOD COUNT 5.14 10^6/uL (4.35-5.85); WHITE BLOOD COUNT 12.8 10^3/uL (4.3-11.0)
--- NOTE | 2017-02-07 07:26 | Diagnostic Imaging Report ---
INDICATION: Coronary artery disease. Study is performed prior to coronary intervention. Portable upright view of the chest is obtained. Since 12/03/2016, heart size and pulmonary vascularity remain within normal limits. There is no pneumothorax or consolidation. No significant pleural fluid is seen. IMPRESSION: No acute abnormalities identified. Dictated by: Dictated on workstation # [id number]
[2017-02-07 07:35] LABS: PROTHROMBIN TIME PATIENT 13.4 SEC (12.2-14.7)
[2017-02-07] MEDS ORDERED: METO-333 PO (07:40)
[2017-02-07] MEDS ORDERED: SIMV20TA3 PO (07:40)
[2017-02-07] MEDS ORDERED: BUSP10TA95 PO (07:40)
[2017-02-07] MEDS ORDERED: FURO20TA4 PO (07:40)
[2017-02-07 07:44] LABS: ALANINE AMINOTRANSFERASE 19 U/L (0-55); ALBUMIN 4.1 GM/DL (3.2-4.5); ANION GAP 9 MMOL/L (5-14); ASPARTATE AMINO TRANSFERASE 16 U/L (5-34); BILIRUBIN,TOTAL 0.7 MG/DL (0.1-1.0); BLOOD UREA NITROGEN 24 MG/DL (7-18); BUN/CREATININE RATIO 24; CALCIUM 9.3 MG/DL (8.5-10.1); CARBON DIOXIDE 23 MMOL/L (21-32); CHLORIDE 106 MMOL/L (98-107); CHOLESTEROL 181 MG/DL (< 200); CREATININE SERUM 0.98 MG/DL (0.60-1.30); DIRECT LDL 134 MG/DL (1-129); GFR ESTIMATED > 60; GLUCOSE 111 MG/DL (70-105); POTASSIUM 4.4 MMOL/L (3.6-5.0); SODIUM 138 MMOL/L (135-145); TOTAL PROTEIN 7.2 GM/DL (6.4-8.2); TRIGLYCERIDES 121 MG/DL (<150); VLDL CHOLESTEROL 24 MG/DL (5-40)
[2017-02-07] MEDS ORDERED: NS IV 1000 ML 1,000 ML IV SCH (07:45)
[2017-02-07] MEDS ORDERED: MIDAZOLAM 5 MG/5 ML (VERSED) VIAL ONE (07:54)
[2017-02-07] MEDS ORDERED: diphenhydrAMINE 50 MG/ML INJ (BENADRYL) ONE (07:54)
[2017-02-07] MEDS ORDERED: fentaNYL INJECTION 100 MCG/2 ML AMP ONE (07:54)
[2017-02-07] MEDS ORDERED: VERAPAMIL 5 MG/2 ML (CALAN) VIAL IV ONE ×2 (07:57→09:11)
[2017-02-07] MEDS ORDERED: HEParin 1000 UNIT/ML (10ML VIAL) FOR BOLUS ONE (07:57)
[2017-02-07] MEDS ORDERED: NITROGLYCERIN DRIP 25 MG/D5W 250 ML IV ONE (07:57)
--- NOTE | 2017-02-07 08:03 | Cardiac Procedure Note-CS/ASA ---
Pre-Procedure Note Pre-Op Procedure Note H&P Reviewed The H&P was reviewed, patient examined and no changes noted. Date H&P Reviewed: Feb 07, 2017 Time H&P Reviewed: 08:02 Conscious Sedation Pre-Proced Time Reviewed: 08:02 ASA Class: 3 Airway Mallampati Classification: (chenega appropriate class) I. II. III, IV Lungs Heart ASA score ASA 1: a normal healthy patient ASA 2: a patient with a mild systemic disease (mid diabetes, controlled hypertension, obesity x ASA 3: a patient with a severe systemic disease that limits activity (angina , COPD, prior Myocardial infarction) ASA 4: a patient with an incapacitating disease that is a constant threat to life (CHF, renal failure) ASA 5: a moribund patient not expected to survive 24 hrs. (ruptured aneurysm) ASA 6: a declared brain patient whose organs are being harvested. For emergent operations, add the letter E after the classification Grade 3 Sedation Plan: Analgesia, Amnesia, Plan communicated to team members, Discussed options with patient/fam, Discussed risks with patient/fam Note The patient is an appropriate candidate to undergo the planned procedure, sedation, and anesthesia. The patient immediately re-assessed prior to indication. KASEY VALDES MD Feb 07, 2017 08:03
--- NOTE | 2017-02-07 09:27 | Discharge Inst-Post CATH ---
Discharge Inst-CATH Post Cardiac Cath D/C Inst Follow Up/Plan Hold metformin for [address] Groves's office in one to 2 weeks CARDIAC CATH DISCHARGE INSTRUCTIONS *Hold Metformin for 48 hours post heart cath. ACTIVITY * Go Home directly and rest. * Limit activity of the leg (or wrist if it was used) for 7 days including aerobics, swimming, jogging, bicycling, etc. * Restrict stair-climbing for 7 days if possible, if not, climb up with your non -cath leg, then bring together on the same step. * Avoid lifting, pushing, pulling or excessive movement of the affected extremity for 7 days. * Customary sexual activity may be resumed after 2 days-use caution not to use a position that strains or causes pain to the affected extremity. * No driving for 24 hours. * NO SMOKING. * Avoid straining for bowel movements for 7 days. * Gentle walking on level ground is allowed. * Returning to work will depend on the type of procedure and the results. Your doctor will discuss this with you. CALL YOUR DOCTOR FOR ANY OF THE FOLLOWING: *If bleeding from the puncture site occurs- Apply gentle pressure to site with clean cloth and call your doctor or EMS. * If a knot or lump forms under the skin, increases in size, or causes pain. * If bruising appears to be worsening or moving further down your leg instead of disappearing. * Temperature above 101 F. CARE OF YOUR GROIN INCISION; * Bruising or purple discoloration of the skin near the puncture site is common. * You may shower only, no bathtub bathing for 5 days. Be careful to avoid slipping as your leg may feel stiff. * If a closure device was used on your femoral artery, please see the attached guide regarding care of the device and your leg. * REMOVE the dressing from your groin the next day after your procedure in the shower. CARE OF YOUR WRIST INCISION; * Bruising or purple discoloration of the skin near the puncture site is common. * You may shower. * DO NOT submerge wrist. * Remove dressing in 24 hours. KASEY GROVES MD Feb 07, 2017 09:27
--- NOTE | 2017-02-07 09:32 | Cardiac Cath Report ---
Cardiac Cath Report Physician (s)/Public Improvement Inspector (s) Physician KASEY VALDES MD Pre-Procedure Diagnosis Pre-Procedure Diagnosis: coronary artery disease Post-Procedure Note Procedure Start Date: Feb 07, 2017 Procedure Start Time: 08:00 Name of Procedure: left heart catheterization Findings/Procedure Note PROCEDURE NOTE: After explaining the procedure to the patient, all pros and cons were explained, all questions were answered. The patient signed the consent and then she was placed on the cardiac catheterization laboratory. The patient was placed on the cardiac catheterization laboratory. Groin and right wrist were prepped SL fashion local anesthesia was used. sheath was placed in the right radial artery, Krys left was advanced to the left carotid system in multiple views were obtained. Krys right was advanced to the left ventricular cavity, left ventriculogram was done. Pullback LV to aorta was done. Then prior to evaluating the right coronary artery the catheter lab system stopped working. After multiple attempts to repeat this system without success we decided to transfer the patient to the second Bridal Consultant room. I left the sheath in place. Covered with sterile drape. Then after transferring the patient I reintroduce the Krys right catheter over a long stork wire advanced to the right coronary artery and angiogram was done and it was removed. At the end of the procedure sheath was removed with manual pressure FINDINGS: Hemodynamics LV 130/37 and diastolic pressure of 37 Aorta 120/88 mean of 99 ANATOMY: Left Main is free of obstructive disease Left Anterior Descending is tortuous artery with mild disease no significant obstructive disease Left Circumflex is nondominant artery with mild disease nonobstructive disease Right Coronory Artery his large dominant artery with slow flow due to small vessel disease LV Gram was done showing left ventricular hypertrophy with normal systolic function estimated ejection fraction 60 percent CONCLUSION: 1. Large dominant right coronary system with slow flow due to small vessel disease, medical therapy is recommended no intervention is weren't 2. Mild disease in the LAD, nonobstructive disease 3. Left ventricular hypertrophy with normal systolic function estimated ejection fraction 60 percent, elevated left ventricular end-diastolic pressure DISCUSSION AND RECOMMENDATION: medical therapy is recommended no intervention is warranted Anesthesia Type: Conscious Sedation Estimated blood loss (mL): 5 ml Contrast Amount: 46 ml Total Radiation Dose: 2217 mGy Post-Procedure Diagnosis Post-operative diagnosis: Coronary artery disease Hypertension Hyperlipidemia Diabetes mellitus KASEY VALDES MD Feb 07, 2017 09:32
[2017-02-07] MEDS ORDERED: NS (IVPB) 50 ML ONE (09:35)
[2017-02-07] MEDS ORDERED: ceFAZolin 1,000 MG (ANCEF) VIAL ONE (09:35)
[2017-02-07] MEDS ORDERED: ATOR20TA49 PO (09:44)
== END 2017-02-07 13:20 | disposition home or self-care (01) ==
LOC: CATH 06:40 → SURG 09:53 → CATH 13:20
PROVIDERS: ATTEND Internal Medicine Cardiovascular Disease
DX: R07.89 Other chest pain (principal); I25.10 Atherosclerotic heart disease of native coronary artery without angina pectoris; I10 Essential (primary) hypertension; E78.5 Hyperlipidemia, unspecified; E11.9 Type 2 diabetes mellitus without complications; I48.91 Unspecified atrial fibrillation; G47.30 Sleep apnea, unspecified; J44.9 Chronic obstructive pulmonary disease, unspecified; I50.9 Heart failure, unspecified; E66.9 Obesity, unspecified; Z79.01 Long term (current) use of anticoagulants; Z87.891 Personal history of nicotine dependence; Z79.84 Long term (current) use of oral hypoglycemic drugs; Z79.899 Other long term (current) drug therapy; Z68.44 Body mass index [BMI] 60.0-69.9, adult
CPT/HCPCS: 36415; 71010; 80053; 80061; 85027; 85347; 85610; 85730; 87081; 93458

== ENCOUNTER → 2017-03-01 | Outpatient (CLI) | payer OTHER ==
[~2017-03-01] MED LIST changes: +ATOR20TA49 PO; +BUSP10TA95 PO; +FURO20TA4 PO; +METO-333 PO
[2017-03-01 15:36] LABS: ABG BASE EXCESS -0.4 MMOL/L (-2.5-2.5); ABG HCO3 24 MMOL/L (23-27); ABG OXYGEN SATURATION 97 % (94-100); ABG PCO2 41 MMHG (35-45); ABG PH 7.38 (7.37-7.43); ABG PO2 75 MMHG (79-93); ABG TCO2 25.3 MMOL/L (21.0-31.0)
[2017-03-01 15:37] LABS: ALLENS TEST YES-POS
[2017-03-01 15:38] LABS: PATIENT TEMP 97.7
== END ==
LOC: LAB 14:54
PROVIDERS: ATTEND Nurse Practitioner Family
DX: J45.909 Unspecified asthma, uncomplicated (principal); J44.9 Chronic obstructive pulmonary disease, unspecified; R06.02 Shortness of breath
CPT/HCPCS: 82805

== ENCOUNTER → 2017-03-09 | Outpatient (CLI) | payer OTHER ==
[~2017-03-09] MED LIST changes: +RT-ALBUTEROL SULF 2.5 MG/3 ML PRE-MIX VIAL IH ONE
== END ==
LOC: RT 11:21
PROVIDERS: ATTEND Nurse Practitioner Family
DX: R06.02 Shortness of breath (principal); J45.909 Unspecified asthma, uncomplicated; J44.9 Chronic obstructive pulmonary disease, unspecified; F17.201 Nicotine dependence, unspecified, in remission
CPT/HCPCS: 94060; 94640; 94726; 94729

== ENCOUNTER 2017-04-13 08:12 | Day surgery (SDC) | payer SELFPAY ==
[2017-04-13] VITALS (14 sets, daily range): BP systolic 100–122; BP diastolic 62–98
[~2017-04-13] VITALS: Ht 177.8 cm; Wt 193.7 kg
[~2017-04-13 08:12] MED LIST changes: -RT-ALBUTEROL SULF 2.5 MG/3 ML PRE-MIX VIAL IH ONE
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
[2017-04-13] MEDS ORDERED: LIDOCAINE 2% VISCOUS 15 ML UDC ONE (08:33)
[2017-04-13] MEDS ORDERED: NS IV 1000 ML 1,000 ML ONE (08:33)
[2017-04-13] MEDS ORDERED: NS IV 1000 ML 1,000 ML IV SCH (09:00)
[2017-04-13 09:25] LABS: BILIRUBIN,URINE NEGATIVE (NEGATIVE); KETONES,URINE NEGATIVE (NEGATIVE); LEUKOCYTE ESTERASE ,URINE 2+ (NEGATIVE); NITRITE,URINE NEGATIVE (NEGATIVE); PH,URINE 5 (5-9); PROTEIN,URINE NEGATIVE (NEGATIVE); UROBILINOGEN,URINE NORMAL (NORMAL)
[2017-04-13] MEDS ORDERED: DILT360C29 PO (09:25)
[2017-04-13] MEDS ORDERED: IBUP-30 PO (09:25)
[2017-04-13] MEDS ORDERED: RIVA20TA PO (09:25)
[2017-04-13 09:26] LABS: RED BLOOD COUNT 4.87 10^6/uL (4.35-5.85); RED CELL DISTRIBUTION WIDTH 16.3 % (10.0-14.5); WHITE BLOOD COUNT 14.9 10^3/uL (4.3-11.0)
[2017-04-13] MEDS ORDERED: METF500T8 PO (09:30)
[2017-04-13] MEDS ORDERED: UMEC62.5 IH (09:30)
[2017-04-13] MEDS ORDERED: SIMV20TA3 PO (09:30)
--- NOTE | 2017-04-13 09:31 | Diagnostic Imaging Report ---
Portable upright radiograph of the chest. INDICATION: Chest pain. FINDINGS: The lungs demonstrate minimal interstitial prominence, may relate to vascular congestion. The heart size is mildly enlarged. No effusion or pneumothorax. The mediastinum and jasmyn appear unremarkable. IMPRESSION: Cardiomegaly with minimal vascular congestion. Dictated by: Dictated on workstation # [id number]
[2017-04-13] MEDS ORDERED: ATOR20TA49 PO (09:32)
[2017-04-13 09:36] LABS: INR 1.5 (0.8-1.4); PROTHROMBIN TIME PATIENT 18.1 SEC (12.2-14.7)
[2017-04-13 09:45] LABS: ALANINE AMINOTRANSFERASE 17 U/L (0-55); ALBUMIN 4.1 GM/DL (3.2-4.5); ANION GAP 10 MMOL/L (5-14); ASPARTATE AMINO TRANSFERASE 14 U/L (5-34); BILIRUBIN,TOTAL 1.4 MG/DL (0.1-1.0); BLOOD UREA NITROGEN 28 MG/DL (7-18); BUN/CREATININE RATIO 26; CALCIUM 9.9 MG/DL (8.5-10.1); CARBON DIOXIDE 25 MMOL/L (21-32); CHLORIDE 104 MMOL/L (98-107); CREATININE SERUM 1.06 MG/DL (0.60-1.30); GFR ESTIMATED > 60; GLUCOSE 111 MG/DL (70-105); POTASSIUM 4.5 MMOL/L (3.6-5.0); SODIUM 139 MMOL/L (135-145); TOTAL PROTEIN 7.5 GM/DL (6.4-8.2)
[2017-04-13] MEDS ORDERED: proPOfol 200 MG/20 ML (DIPRIVAN) VIAL IV ONE (09:57)
[2017-04-13] MEDS ORDERED: MIDAZOLAM 2 MG/2 ML (VERSED) VIAL ONE (09:57)
[2017-04-13] MEDS ORDERED: INFLUENZA TRIvalent 2017-2018 0.5 ML/45 MCG SYR IM ONE (10:15)
[2017-04-13] MEDS ORDERED: DRON400T2 PO (11:12)
[2017-04-13] MEDS ORDERED: LIDOCAINE 2% VISCOUS 15 ML UDC PO ONE (11:15)
--- NOTE | 2017-04-13 11:15 | Cardiac Procedure Note-CS/ASA ---
Pre-Procedure Note Pre-Op Procedure Note H&P Reviewed The H&P was reviewed, patient examined and no changes noted. Date H&P Reviewed: Apr 13, 2017 Time H&P Reviewed: 09:30 Conscious Sedation Pre-Proced Time Reviewed: 09:30 ASA Class: 3 Airway Mallampati Classification: (chenega appropriate class) I. II. III, IV Lungs Heart ASA score ASA 1: a normal healthy patient ASA 2: a patient with a mild systemic disease (mid diabetes, controlled hypertension, obesity x ASA 3: a patient with a severe systemic disease that limits activity (angina , COPD, prior Myocardial infarction) ASA 4: a patient with an incapacitating disease that is a constant threat to life (CHF, renal failure) ASA 5: a moribund patient not expected to survive 24 hrs. (ruptured aneurysm) ASA 6: a declared brain patient whose organs are being harvested. For emergent operations, add the letter E after the classification Grade 3 Sedation Plan: Analgesia, Amnesia, Plan communicated to team members, Discussed options with patient/fam, Discussed risks with patient/fam Note The patient is an appropriate candidate to undergo the planned procedure, sedation, and anesthesia. The patient immediately re-assessed prior to indication. KASEY VALDES MD Apr 13, 2017 11:15
--- NOTE | 2017-04-13 11:15 | Progress Note-Standard ---
Standard Progress Note Progress Notes/Assess & Plan Time Seen by Provider: 11:05 Final Diagnosis Consulted for sedation during ANALY/Cardioversion. Report gathered, history obtained, supplies at bedside. Versed 2mg IV, Propofol 80 mg IV. Tolerated well , VSS, report to skill labor RN care assumed. LIAM LEONARDO CRNA Apr 13, 2017 11:15
--- NOTE | 2017-04-13 11:17 | Cardiac Procedure Note ---
Cardiology Procedures Date of Procedure 04/13/17 BRIEF HISTORY: The patient is a 56 male with paroxysmal atrial flutter ablation has been in atrial fibrillation with borderline tachycardia PROCEDURE NOTE: After explaining the procedure to the patient, all pros and cons were explained. The patient was sedated with assistance of anesthesia, DC cardioversion was delivered with 200 J, successfully terminated ventricular fibrillation CONCLUSION: Successful electrical cardioversion and terminating atrial fibrillationnext Final diagnoses Atrial fibrillation Hypertension Hyperlipidemia COPD KASEY VALDES MD Apr 13, 2017 11:17
== END 2017-04-13 14:00 | disposition home or self-care (01) ==
LOC: CATH 08:12 → SURG 11:30 → CATH 14:00
PROVIDERS: ATTEND Internal Medicine Cardiovascular Disease
DX: I48.91 Unspecified atrial fibrillation (principal); I11.0 Hypertensive heart disease with heart failure; E78.5 Hyperlipidemia, unspecified; J44.9 Chronic obstructive pulmonary disease, unspecified; G47.33 Obstructive sleep apnea (adult) (pediatric); Z79.899 Other long term (current) drug therapy; Z79.84 Long term (current) use of oral hypoglycemic drugs; Z79.82 Long term (current) use of aspirin; I50.9 Heart failure, unspecified; E11.9 Type 2 diabetes mellitus without complications; R82.90 Unspecified abnormal findings in urine; Z11.2 Encounter for screening for other bacterial diseases
CPT/HCPCS: 36415; 71010; 80053; 81000; 85027; 85610; 85730; 87077; 87081; 87088; 87186; 92960; 93005; 93320; 93325

== ENCOUNTER → 2017-06-30 | Day surgery (SDC) | payer SELFPAY ==
[~2017-06-30] VITALS: Ht 175.3 cm; Wt 190.5 kg
[2017-06-30] VITALS (8 sets, daily range): BP systolic 80–131; BP diastolic 50–106
[~2017-06-30] MED LIST changes: +ASCO100025 PO; +DRON400T2 PO; +IBUP-30 PO; +KETAMINE HCL 100 MG/ML 5 ML VIAL ONE; +LIDOCAINE 2% VISCOUS 15 ML UDC ONE; +MIDAZOLAM 2 MG/2 ML (VERSED) VIAL ONE; +MULT-974 PO; +NS IV 1000 ML 1,000 ML IV SCH; +NS IV 1000 ML 1,000 ML ONE; +OMG1KC PO; +RIVAROXABAN 20 MG TABLET (XARELTO) PO STA; +SAMBUCOL PO; +TUMERIC PO; +UMEC62.5 IH; +proPOfol 200 MG/20 ML (DIPRIVAN) VIAL IV ONE
--- NOTE | 2017-06-30 12:51 | Progress Note-Standard ---
Standard Progress Note Progress Notes/Assess & Plan Date Seen by Provider: Jun 30, 2017 Time Seen by Provider: 12:20 Progress/Assessment & Plan consult for hari/cardioversion. ASA 4 . mac anesthesia. start time 1220 end time 1242. 90mg propofol, 30mg ketamine, and 2 mg versed. JIMMIE HERNANDEZ CRNA Jun 30, 2017 12:51
--- NOTE | 2017-06-30 12:57 | Cardioversion ---
Cardioversion PROCEDURE PHYSICIAN: Rani Campoverde MD DATE OF PROCEDURE: 06/30/17 DIRECT EXTERNAL ELECTRICAL CARDIOVERSION: Indications: Atrial Fibrillation with rapid ventricular rate Preoperative diagnoses: Atrial Fibrillation with rapid ventricular rate Postoperative diagnosis: Unsuccessful Electrical Cardioversion History: 56 year old male with persistent atrial fibrillation. Anesthesia: By Anesthesia services Complications: None Specimen: None Contrast: 0 Flouroscopy: none Procedure Details: The patient was brought the labor union business representative after informed consent was taken, all the risks and complications were explained including the risk of stroke. ANALY was performed since the patient did not take his oral anticoagulation in the last two days. ANALY did not show any LA or RAJ thrombus. Electrical cardioversion was carried out with anesthesia support with propofol. Three 200 joules of synchronized shock was delivered through external patches which were unsuccessful. The patient tolerated the procedure well. Conclusions: 1.Unsuccessful Cardioversion. 2.Continue oral anticoagulation and rate controlling agent. 3.Follow up in office in 3-4 weeks Rani Campoverde MD, FHRS, CCDS Cardiac Electrophysiology Kareen CAMPOVERDE MD Jun 30, 2017 12:56 pm
== END | disposition home or self-care (01) ==
LOC: CATH 07:53
PROVIDERS: ATTEND Internal Medicine Interventional Cardiology
DX: I48.0 Paroxysmal atrial fibrillation (principal); I11.0 Hypertensive heart disease with heart failure; I50.9 Heart failure, unspecified; G47.33 Obstructive sleep apnea (adult) (pediatric); J43.9 Emphysema, unspecified; E66.9 Obesity, unspecified; Z68.44 Body mass index [BMI] 60.0-69.9, adult; Z79.01 Long term (current) use of anticoagulants; Z79.82 Long term (current) use of aspirin; Z79.899 Other long term (current) drug therapy; Z87.891 Personal history of nicotine dependence
CPT/HCPCS: 92960; 93005; 93320; 93325

== ENCOUNTER 2017-08-05 16:59 | Inpatient (IN) | payer OTHER ==
[~2017-08-05] VITALS: Ht 175.3 cm; Wt 186.0 kg
[2017-08-05 16:50] VITALS: BP 107/54
[~2017-08-05 16:59] MED LIST changes: -KETAMINE HCL 100 MG/ML 5 ML VIAL ONE; -LIDOCAINE 2% VISCOUS 15 ML UDC ONE; -MIDAZOLAM 2 MG/2 ML (VERSED) VIAL ONE; -NS IV 1000 ML 1,000 ML IV SCH; -NS IV 1000 ML 1,000 ML ONE; -RIVAROXABAN 20 MG TABLET (XARELTO) PO STA; -proPOfol 200 MG/20 ML (DIPRIVAN) VIAL IV ONE
[2017-08-05] MEDS ORDERED: DILT180C82 PO (17:33)
[2017-08-05] MEDS ORDERED: IBUPROFEN 600 MG (MOTRIN) TAB PO PRN (17:45)
[2017-08-05 19:53] VITALS: BP 87/41
[2017-08-05] MEDS: UMECLIDINIUM BROMIDE (INCRUSE ELLIPTA) 7'S IH SCH (20:02)
[2017-08-05] MEDS: RT-ADVAIR HFA 115/21 MCG PER PUFF IH SCH (20:02)
[2017-08-05] MEDS: busPIRone 10 MG (BUSPAR) TAB PO SCH (20:20)
[2017-08-05] MEDS: SOTALOL 80 MG (BETAPACE) TAB PO SCH (20:21)
[2017-08-05 21:13] VITALS: BP 128/58
[2017-08-05] MEDS: ATORVASTATIN 20 MG (LIPITOR) TABLET PO SCH (21:29)
[2017-08-05] MEDS: meTOprolol TARTRATE 25 MG (LOPRESSOR) TABLET PO SCH (21:29)
[2017-08-05 22:20] VITALS: BP 129/68
[2017-08-06] VITALS: BP 106/58
[2017-08-06 03:59] VITALS: BP 103/59
[2017-08-06 05:35] LABS: BASOPHILS # (AUTO) 0.1 10^3/uL (0.0-0.1); BASOPHILS % (AUTO) 0 % (0-10); EOSINOPHILS # (AUTO) 0.7 10^3/uL (0.0-0.3); EOSINOPHILS % (AUTO) 5 % (0-10); HEMATOCRIT 40 % (40-54); HEMOGLOBIN 12.5 G/DL (13.3-17.7); LYMPHOCYTES # (AUTO) 2.5 X 10^3 (1.0-4.0); LYMPHOCYTES % (AUTO) 18 % (12-44); MEAN CORPUSCULAR HEMOGLOBIN 26 PG (25-34); MEAN CORPUSCULAR HGB CONC 31 G/DL (32-36); MEAN CORPUSCULAR VOLUME 82 FL (80-99); MONOCYTES # (AUTO) 1.3 X 10^3 (0.0-1.0); MONOCYTES % (AUTO) 10 % (0-12); NEUTROPHILS # (AUTO) 9.2 X 10^3 (1.8-7.8); NEUTROPHILS % (AUTO) 67 % (42-75); PLATELET COUNT 403 10^3/uL (130-400); RED BLOOD COUNT 4.91 10^6/uL (4.35-5.85); RED CELL DISTRIBUTION WIDTH 17.1 % (10.0-14.5); WHITE BLOOD COUNT 13.8 10^3/uL (4.3-11.0)
[2017-08-06 05:55] LABS: ALANINE AMINOTRANSFERASE 12 U/L (0-55); ALKALINE PHOSPHATASE 110 U/L (40-136); BILIRUBIN,TOTAL 0.8 MG/DL (0.1-1.0); BUN/CREATININE RATIO 26; CALCIUM 9.9 MG/DL (8.5-10.1); CARBON DIOXIDE 24 MMOL/L (21-32); CHLORIDE 105 MMOL/L (98-107); CREATININE SERUM 0.97 MG/DL (0.60-1.30); GFR ESTIMATED > 60; GLUCOSE 106 MG/DL (70-105); POTASSIUM 4.3 MMOL/L (3.6-5.0); SODIUM 138 MMOL/L (135-145)
[2017-08-06 08:00] VITALS: BP 125/73
[2017-08-06] MEDS ORDERED: TUMERIC PO SCH (09:00)
[2017-08-06] MEDS: MULTIVIT W/MINERALS TAB (THERAGRAN M) PO SCH (09:31)
[2017-08-06] MEDS: lisINopril 20 MG (PRINIVIL) TABLET PO SCH (09:31)
[2017-08-06] MEDS: meTOprolol TARTRATE 25 MG (LOPRESSOR) TABLET PO SCH ×2 (09:31→20:31)
[2017-08-06] MEDS: SOTALOL 80 MG (BETAPACE) TAB PO SCH ×2 (09:32→20:31)
[2017-08-06] MEDS: ASPIRIN E.C. 81 MG (ECOTRIN) TAB PO SCH (09:32)
[2017-08-06] MEDS: ASCORBIC ACID (VIT C) 500 MG TABLET PO SCH (09:32)
[2017-08-06] MEDS: DILTIAZEM 180 MG (CARDIZEM CD) CAP PO SCH (09:32)
[2017-08-06] MEDS: busPIRone 10 MG (BUSPAR) TAB PO SCH ×2 (09:32→20:31)
[2017-08-06] MEDS: OMEGA 3 (FISH OIL) 1000 MG CAP PO SCH (09:32)
[2017-08-06] MEDS: HYDROCHLOROTHIAZIDE 12.5 MG (HCTZ) CAP PO SCH (09:33)
[2017-08-06] MEDS: MELOXICAM 7.5 MG (MOBIC) TABLET PO SCH (09:33)
[2017-08-06] MEDS: FUROSEMIDE 20 MG (LASIX) TAB PO SCH (09:33)
[2017-08-06] MEDS: RT-ADVAIR HFA 115/21 MCG PER PUFF IH SCH ×2 (09:41→18:50)
[2017-08-06 11:31] VITALS: BP 117/69
--- NOTE | 2017-08-06 13:58 | History & Physicial-Cardiolgy ---
HPI-Cardiology Cardiology Consultation: Date of Consultation 08/06/17 Date of Admission Attending Physician Kareen Campoverde MD Admitting Physician Aubrie Garcia DO Consulting Physician Kareen CAMPOVERDE MD HPI: Time Seen by Provider: 12:00 Chief Complaint: Atrial fibrillation, for sotalol loading This is a 56-year-old patient who follows with Dr. Groves. I initially saw him as a in-hospital consultation in November 2016 when he presented with atrial fibrillation with rapid ventricular rate. He was started on Cardizem and oral anticoagulation. Patient had a stress test and coronary angiography which did not reveal obstructive CAD. Transesophageal echocardiogram assisted cardioversion was performed on 04/13/2017 which was successful. LV function was normal. In sinus rhythm to 2 weeks ago. And he is converted back into atrial fibrillation with rapid ventricular rate. He is on Cardizem 360, Xarelto , metoprolol 25 mg twice a day. He was also started on multaq 400 mg twice a day however the patient has been taking it once a day. He complains of mild shortness of breath, fatigue. Patient also has history of sleep apnea on CPAP. Repeat transesophageal echocardiogram assisted electrical cardioversion was performed on 06/30/2017, however it was unsuccessful after 3 shocks. Admitted for sotalol loading. Review of Systems-Cardiology Review of Systems Constitutional: No As described under HPI, No no symptoms reported, No chills, No fever, No lightheadedness, No malaise, No tiredness, No weight loss, No weight gain, No other Eyes: No As described under HPI, No no symptoms reported, No blindness, No blurred vision, No contact lenses, No drainage, No decreased acuity, No foreign body sensation, No glasses, No inflammation, No pain, No photophobia, No previous injury, No shadows, No tunnel vision, No other, No vision change Ears/Nose/Throat: No As described under HPI, No no symptoms reported, No chronic hearing loss, No epistaxis, No ear discharge, No ear pain, No loose teeth, No mouth pain, No mouth swelling, No nasal drainage, No nose pain, No recent hearing loss, No throat pain, No throat swelling, No ulcerations, No other Respiratory: No no symptoms reported, No As described under HPI, No cough, No orthopnea, shortness of breath, No SOB with excertion, No SOB at rest, No stridor, No wheezing, No other Cardiovascular: No no symptoms reported, No As described under HPI, No chest pain, No edema, irregular heart rate, No lightheadedness, No palpitations, No syncope, No other Gastrointestinal: No no symptoms reported, No As described under HPI, No abdomen distended, No abdominal pain, No blood streaked bowels, No constipation , No diarrhea, No difficulty swallowing, No nausea, No poor appetite, No poor fluid intake, No rectal bleeding, No vomiting, No other, No nausea/vomiting/ diarrhea, No stool coloration changes Genitourinary: No no symptoms reported, No As described under HPI, No burning, No dysuria, No discharge, No frequency, No flank pain, No hematuria, No incontinence, No pain, No urgency, No other, No urine frequency changes, No urine coloration changes Musculoskeletal: No no symptoms reported, No As describe under HPI, No back pain, No gout, No joint pain, No joint swelling, No muscle pain, No muscle stiffness, No neck pain, No other Skin: No no symptoms reported, No As described under HPI, No change in color, No change in hair/nails, No dryness, No lesions, No lumps, No rash, No other, No skin related problems, No ulcerations, No rash on exposed areas, No ulcerations on exposed areas Psychiatric/Neurological: No no symptoms reported, No As described under HPI, No anxiety, No depression, No emotional problems, No headache, No numbness, No pre-existing deficit, No seizure, No tingling, No tremors, No weakness, No other , No focal weakness, No syncope Hematologic: No no symptoms reported, No As described under HPI, No anemia, No blood clots, No easy bleeding, No easy bruising, No swollen glands, No other, No bleeding abnormalities All Other Systems Reviewed Negative Unless Noted: Yes GEW-[id number]-Uzjxah Hx Patient Social History Alcohol Use: Denies Use Recreational Drug Use: Yes ( MARJUANNA) Drug of Choice: CURRENT POT SMOKER, HX OF METH USE 30 YEARS AGO Smoking Status: Current Everyday Smoker Type Used: Cigarettes Recent Foreign Travel: No Recent Infectious Disease Expo: No Hospitalization with Isolation: Denies Physical Abuse Screen: No Sexual Abuse: No Immunizations Up To Date Date of Pneumonia Vaccine: Feb 17, 2016 Date of Influenza Vaccine: May 23, 2017 Past Medical History PMH As described under Assessment. Family Medical History Family History: Arthritis 19 FATHER Asthma G8 SISTER Diabetes mellitus 19 MOTHER Hypercholesterolemia 19 FATHER Hypertension 19 FATHER Respiratory disorder 19 FATHER Allergies and Home Medications Allergies Coded Allergies: iodine (Verified Allergy, Mild, 09/18/15) Home Medications Ascorbic Acid 1,000 Mg Tablet.er, 1,000 MG PO DAILY, (Reported) Aspirin 81 Mg Tablet.dr, 81 MG PO DAILY, (Reported) Atorvastatin Calcium 20 Mg Tablet, 20 MG PO HS, (Reported) Buspirone HCl 10 Mg Tablet, 10 MG PO BID, (Reported) Diltiazem HCl 180 Mg Capsule.er, 360 MG PO DAILY, (Reported) Fluticasone/Salmeterol 1 Each Blst.w.dev, 1 PUFF IH BID, (Reported) Furosemide 20 Mg Tablet, 20 MG PO DAILY, (Reported) Hydrochlorothiazide 12.5 Mg Capsule, 12.5 MG PO DAILY, (Reported) Ibuprofen 200 Mg Tablet, 600 MG PO BID PRN for PAIN-MILD, (Reported) TAKES 3 (200MG) TABLETS Lisinopril 30 Mg Tablet, 30 MG PO DAILY, (Reported) Meloxicam 15 Mg Tablet, 15 MG PO DAILY, (Reported) Metformin HCl 500 Mg Tab.er.24h, 500 MG PO 1700, (Reported) Metoprolol Tartrate 25 Mg Tablet, 25 MG PO BID, (Reported) Multivitamin 1 Each Tablet, 1 EACH PO DAILY, (Reported) [place] 3 Polyunsat Fatty Acids 1,000 Mg Cap, 1,000 MG PO DAILY, (Reported) Rivaroxaban 20 Mg Tablet, 20 MG PO 1730, (Reported) Umeclidinium [place] 62.5 Mcg Blst.w.dev, 1 PUFF IH HS, (Reported) [Tumeric] , 1 TAB PO DAILY, (Reported) Patient Home Medication List Home Medication List Reviewed: Yes Physical Exam-Cardiology Physical Exam Vital Signs/I&O Vital Sign - Last 12Hours 08/06/17 08/06/17 08/06/17 08/06/17 11:31 13:00 16:23 18:50 Temp 97.4 98.0 Pulse 95 81 96 Resp 17 18 B/P (MAP) 117/69 (85) 119/58 (78) Pulse Ox 98 96 94 O2 Delivery Room Air Room Air Room Air 08/06/17 08/06/17 18:51 19:00 Pulse 67 O2 Delivery Room Air Intake and Output 08/06/17 00:00 Intake Total 600 ml Balance 600 ml Capillary Refill : Constitutional: No appears stated age, AAO x 3, No apparent distress, No PERRL , No well-developed, No well-nourished, No other HEENT: PERRL, No normal ENT inspection, No TMs normal, No pharynx normal, No scleral icterus (R), No scleral icterus (L), No pale conjunctivae (R), No pale conjunctivae (L), No photophobia, No TM abnormal (R), No TM abnormal (L), No pharyngeal erythema, No tonsillar exudate, No other, No discharge, No EOMI, hearing is well preserved, No hard of hearing, oral hygience is good, No ulceration, No xanthelasmas are seen Neck: No non-tender, No full range of motion, No supple, No normal inspection, No carotid bruit, No limited range of motion, No lymphadenopathy (R), No lymphadenopathy (L), No tender lateral, No tender midline, No thyromegaly, No other, carotid pulses are 2 + bilaterally, No with good upstrokes Respiratory: No accessory muscle use, No respiratory distress, No chest tender , No chest expansion is symmetric, chest is bilaterally symmetric, No lungs clear to percussion, lungs clear to auscultation, No crackles, No rhonchi, No rales, No stridor, No wheezing, No pleural rub, No other Cardiovascular: irregularly irregular, S1 and S2 Gastrointestinal: No tender, No soft, No round, No distended, No pulsatile mass , No organomegaly, No guarding, No rebound, No tenderness, No hernia, No mass, No audible bowel sounds, No abnormal bowel sounds, No abdominal bruits, No spleenomegaly, No other Rectal: deferred Extremities: No normal range of motion, No non-tender, No normal inspection, No pedal edema, No calf tenderness, No normal capillary refill, No pelvis stable , No calf tenderness, No inflammation, No pedal edema, No slow capillary refill , No swelling, No other, No abrasion, No clubbing, No cyanosis, No ecchymosis, No laceration, No no lower extremity edema bilateral, No significant edema, No tenderness, No wound Neurologic/Psychiatric: alert, normal mood/affect, oriented x 3, power is 5/5 both on sides Skin: No rash, No ulcerations Data Review Labs Laboratory Tests 08/06/17 05:25: White Blood Count 13.8H, Red Blood Count 4.91, Hemoglobin 12.5L, Hematocrit 40, Mean Corpuscular Volume 82, Mean Corpuscular Hemoglobin 26, Mean Corpuscular Hemoglobin Concent 31L, Red Cell Distribution Width 17.1H, Platelet Count 403H, Mean Platelet Volume 10.0, Neutrophils (%) (Auto) 67, Lymphocytes (%) (Auto) 18 , Monocytes (%) (Auto) 10, Eosinophils (%) (Auto) 5, Basophils (%) (Auto) 0, Neutrophils # (Auto) 9.2H, Lymphocytes # (Auto) 2.5, Monocytes # (Auto) 1.3H, Eosinophils # (Auto) 0.7H, Basophils # (Auto) 0.1, Sodium Level 138, Potassium Level 4.3, Chloride Level 105, Carbon Dioxide Level 24, Anion Gap 9, Blood Urea Nitrogen 25H, Creatinine 0.97, Estimat Glomerular Filtration Rate > 60, BUN/ Creatinine Ratio 26, Glucose Level 106H, Calcium Level 9.9, Total Bilirubin 0.8 , Aspartate Amino Transf (AST/SGOT) 17, Alanine Aminotransferase (ALT/SGPT) 12, Alkaline Phosphatase 110, Troponin I < 0.30, Total Protein 7.0, Albumin 4.0 ECG Impression ECG Initial ECG Impression: Atrial Fibrillation A/P-Cardiology Assessment/Admission Diagnosis Atrial fibrillation, for sotalol loading. Admission Status: Inpatient Order (span 2 midnights) Reason for Inpatient Admission: Once patient is started on sotalol, he/she needs to be admitted for 72 hours to monitor QTc interval and for VT. Plan This is a 56-year-old patient who follows with Dr. Groves. I initially saw him as a in-hospital consultation in November 2016 when he presented with atrial fibrillation with rapid ventricular rate. He was started on Cardizem and oral anticoagulation. Patient had a stress test and coronary angiography which did not reveal obstructive CAD. Transesophageal echocardiogram assisted cardioversion was performed on 04/13/2017 which was successful. LV function was normal. In sinus rhythm to 2 weeks ago. And he is converted back into atrial fibrillation with rapid ventricular rate. He is on Cardizem 360, Xarelto , metoprolol 25 mg twice a day. He was also started on multaq 400 mg twice a day however the patient has been taking it once a day. He complains of mild shortness of breath, fatigue. Patient also has history of sleep apnea on CPAP. Multaq dose was increased to 400 mg twice a day on his last visit. Transesophageal echocardiogram assisted cardioversion was performed on 2017 which was unsuccessful. He presents for routine follow-up and EKG shows atrial fibrillation at 86 bpm. I discussed at length with the patient and we have mutually decided to discontinue multaq and admit on August 05, 2017 for sotalol admission. Once the patient is on sotalol for a few weeks we will try cardioversion again. I also discussed about ablation. However due to morbid obesity, COPD, sleep apnea the success rate in him will be modest. He will continue CPAP therapy for sleep apnea. Diet and exercise was recommended for diabetes prevention and education on CHF prevention was given. Start sotalol loading with 80 mg twice a day. EKG before each dose and 2 hours after for measuring QTc interval. Since QTc interval has been below 480 ms I will give sotalol 120 mg and see his response of QTc. Clinical Quality Measures DVT/VTE Risk/Contraindication: Risk Factor Score Per Nursin RFS Level Per Nursing on Admit: 4+=Very High Kareen CAMPOVERDE MD Aug 06, 2017 1:58 pm
[2017-08-06 16:23] VITALS: BP 119/58
[2017-08-06] MEDS: metFORMIN XR 500 MG (GLUCOPHAGE XR) TAB PO SCH (17:04)
[2017-08-06] MEDS: RIVAROXABAN 20 MG TABLET (XARELTO) PO SCH (17:04)
[2017-08-06] MEDS: UMECLIDINIUM BROMIDE (INCRUSE ELLIPTA) 7'S IH SCH (18:50)
[2017-08-06 20:00] VITALS: BP 94/64
[2017-08-06] MEDS: ATORVASTATIN 20 MG (LIPITOR) TABLET PO SCH (20:30)
[2017-08-07] VITALS: BP 106/54
[2017-08-07 04:00] VITALS: BP 114/57
[2017-08-07 07:45] VITALS: BP 101/50
[2017-08-07] MEDS: SOTALOL 80 MG (BETAPACE) TAB PO SCH ×2 (08:58→20:10)
[2017-08-07] MEDS: OMEGA 3 (FISH OIL) 1000 MG CAP PO SCH (08:58)
[2017-08-07] MEDS: FUROSEMIDE 20 MG (LASIX) TAB PO SCH (08:58)
[2017-08-07] MEDS: MULTIVIT W/MINERALS TAB (THERAGRAN M) PO SCH (08:59)
[2017-08-07] MEDS: MELOXICAM 7.5 MG (MOBIC) TABLET PO SCH (08:59)
[2017-08-07] MEDS: ASCORBIC ACID (VIT C) 500 MG TABLET PO SCH (08:59)
[2017-08-07] MEDS: DILTIAZEM 180 MG (CARDIZEM CD) CAP PO SCH (09:00)
[2017-08-07] MEDS: meTOprolol TARTRATE 25 MG (LOPRESSOR) TABLET PO SCH ×2 (09:00→20:10)
[2017-08-07] MEDS: busPIRone 10 MG (BUSPAR) TAB PO SCH ×2 (09:00→20:11)
[2017-08-07] MEDS: ASPIRIN E.C. 81 MG (ECOTRIN) TAB PO SCH (09:00)
[2017-08-07] MEDS: lisINopril 20 MG (PRINIVIL) TABLET PO SCH (09:03)
[2017-08-07] MEDS: HYDROCHLOROTHIAZIDE 12.5 MG (HCTZ) CAP PO SCH (09:04)
--- NOTE | 2017-08-07 10:33 | Cardiology Progress Note ---
Cardiology SOAP Progress Note Subjective: No cardiac complaints. Objective: I&O/Vital Signs Vital Sign - Last 12Hours 08/07/17 08/07/17 08/07/17 08/07/17 11:06 11:35 13:00 16:41 Temp 98.6 98.7 Pulse 89 73 80 Resp 20 20 B/P (MAP) 108/68 (81) 104/52 (69) Pulse Ox 93 96 O2 Delivery Room Air Room Air Room Air 08/07/17 08/07/17 08/07/17 08/07/17 19:00 20:17 20:17 20:21 Temp 99.1 Pulse 81 77 Resp 20 B/P (MAP) 100/52 (68) Pulse Ox 95 96 99 O2 Delivery Room Air Room Air Room Air Intake and Output 08/07/17 00:00 Intake Total 1840 ml Balance 1840 ml Weight (Pounds): 410 Weight (Ounces): 0.0 Weight (Calculated Kilograms): [id number] Constitutional: No appears stated age, AAO x 3, No apparent distress, No PERRL , No well-developed, No well-nourished, No other Respiratory: No accessory muscle use, No respiratory distress, No chest tender , No chest expansion is symmetric, chest is bilaterally symmetric, No lungs clear to percussion, lungs clear to auscultation, No crackles, No rhonchi, No rales, No stridor, No wheezing, No pleural rub, No other Cardiovascular: irregularly irregular, S1 and S2 Gastrointestional: No tender, No soft, No round, No distended, No pulsatile mass, No organomegaly, No guarding, No rebound, No tenderness, No hernia, No mass, No audible bowel sounds, No abnormal bowel sounds, No abdominal bruits, No spleenomegaly, No other Extremities: No normal range of motion, No non-tender, No normal inspection, No pedal edema, No calf tenderness, No normal capillary refill, No pelvis stable , No calf tenderness, No inflammation, No pedal edema, No slow capillary refill , No swelling, No other, No abrasion, No clubbing, No cyanosis, No ecchymosis, No laceration, No no lower extremity edema bilateral, No significant edema, No tenderness, No wound Neurologic/Psychiatric: alert, normal mood/affect, oriented x 3, power is 5/5 both on sides Skin: No rash, No ulcerations A/P: Assessment/Dx: Atrial fibrillation, for sotalol loading. Plan: This is a 56-year-old patient who follows with Dr. Groves for Cardiology. I initially saw him as a in-hospital consultation in November 2016 when he presented with atrial fibrillation with rapid ventricular rate. He was started on Cardizem and oral anticoagulation. Patient had a stress test and coronary angiography which did not reveal obstructive CAD. Transesophageal echocardiogram assisted cardioversion was performed on 04/13/2017 which was successful. LV function was normal. In sinus rhythm to 2 weeks ago. And he is converted back into atrial fibrillation with rapid ventricular rate. He is on Cardizem 360, Xarelto, metoprolol 25 mg twice a day. He was also started on multaq 400 mg twice a day however the patient has been taking it once a day. He complains of mild shortness of breath, fatigue. Patient also has history of sleep apnea on CPAP. Multaq dose was increased to 400 mg twice a day on his last visit. Transesophageal echocardiogram assisted cardioversion was performed on 2017 which was unsuccessful. He presents for routine follow-up and EKG shows atrial fibrillation at 86 bpm. I discussed at length with the patient and we have mutually decided to discontinue multaq and admit on August 05, 2017 for sotalol admission. Once the patient is on sotalol for a few weeks we will try cardioversion again. I also discussed about ablation. However due to morbid obesity, COPD, sleep apnea the success rate in him will be modest. He will continue CPAP therapy for sleep apnea. Diet and exercise was recommended for diabetes prevention and education on CHF prevention was given. Started on sotalol loading with 80 mg twice a day. EKG before each dose and 2 hours after for measuring QTc interval. Since QTc interval has been below 480 ms I will give sotalol 120 mg and see his response of QTc. Tolerating Sotalol 120mg twice daily. Hopefully discharge on Tuesday am. Thank you for your consultation. Please call me if you have any questions. Rani Campoverde MD, FACP, FACC, FSCAI, FHRS, CCDS Interventional Cardiology Cardiac Electrophysiology Vascular Medicine and Endovascular Interventions Kareen CAMPOVERDE MD Aug 07, 2017 10:33 am
[2017-08-07 11:06] VITALS: BP 108/68
[2017-08-07] MEDS: RT-ADVAIR HFA 115/21 MCG PER PUFF IH SCH ×2 (11:34→20:17)
[2017-08-07] MEDS: RIVAROXABAN 20 MG TABLET (XARELTO) PO SCH (16:33)
[2017-08-07] MEDS: metFORMIN XR 500 MG (GLUCOPHAGE XR) TAB PO SCH (16:33)
[2017-08-07 16:41] VITALS: BP 104/52
[2017-08-07] MEDS: ATORVASTATIN 20 MG (LIPITOR) TABLET PO SCH (20:10)
[2017-08-07 20:17] VITALS: BP 100/52
[2017-08-07] MEDS: UMECLIDINIUM BROMIDE (INCRUSE ELLIPTA) 7'S IH SCH (20:17)
[2017-08-08 00:20] VITALS: BP 112/55
[2017-08-08 04:05] VITALS: BP 95/56
[2017-08-08] MEDS: RT-ADVAIR HFA 115/21 MCG PER PUFF IH SCH (07:12)
[2017-08-08 08:00] VITALS: BP 110/64
[2017-08-08] MEDS: SOTALOL 80 MG (BETAPACE) TAB PO SCH (09:41)
[2017-08-08] MEDS: lisINopril 20 MG (PRINIVIL) TABLET PO SCH (09:41)
[2017-08-08] MEDS: OMEGA 3 (FISH OIL) 1000 MG CAP PO SCH (09:41)
[2017-08-08] MEDS: busPIRone 10 MG (BUSPAR) TAB PO SCH (09:41)
[2017-08-08] MEDS: MELOXICAM 7.5 MG (MOBIC) TABLET PO SCH (09:42)
[2017-08-08] MEDS: ASPIRIN E.C. 81 MG (ECOTRIN) TAB PO SCH (09:42)
[2017-08-08] MEDS: ASCORBIC ACID (VIT C) 500 MG TABLET PO SCH (09:42)
[2017-08-08] MEDS: meTOprolol TARTRATE 25 MG (LOPRESSOR) TABLET PO SCH (09:42)
[2017-08-08] MEDS: FUROSEMIDE 20 MG (LASIX) TAB PO SCH (09:42)
[2017-08-08] MEDS: DILTIAZEM 180 MG (CARDIZEM CD) CAP PO SCH (09:42)
[2017-08-08] MEDS: HYDROCHLOROTHIAZIDE 12.5 MG (HCTZ) CAP PO SCH (09:54)
[2017-08-08] MEDS: MULTIVIT W/MINERALS TAB (THERAGRAN M) PO SCH (09:54)
--- NOTE | 2017-08-08 12:39 | Cardiology Discharge Summary ---
Diagnosis/Chief Complaint Date of Admission Aug 05, 2017 at 16:59 Date of Discharge 08/08/2017 Admission Diagnosis Atrial fibrillation for sotalol loading Final/Discharge Diagnosis Atrial fibrillation Chief Complaint/HPI Chief Complaint/HPI This is a 56-year-old patient who follows with Dr. Groves. I initially saw him as a in-hospital consultation in November 2016 when he presented with atrial fibrillation with rapid ventricular rate. He was started on Cardizem and oral anticoagulation. Patient had a stress test and coronary angiography which did not reveal obstructive CAD. Transesophageal echocardiogram assisted cardioversion was performed on 04/13/2017 which was successful. LV function was normal. In sinus rhythm to 2 weeks ago. And he is converted back into atrial fibrillation with rapid ventricular rate. He is on Cardizem 360, Xarelto , metoprolol 25 mg twice a day. He was also started on multaq 400 mg twice a day however the patient has been taking it once a day. He complains of mild shortness of breath, fatigue. Patient also has history of sleep apnea on CPAP. Repeat transesophageal echocardiogram assisted electrical cardioversion was performed on 06/30/2017, however it was unsuccessful after 3 shocks. Admitted for sotalol loading. Discharge Summary Procedures None. Discharge Physical Examination Normal cardiovascular and respiratory examination. Irregularly irregular rhythm. Hospital Course Unremarkable. Initially we started off with sotalol 80 mg twice a day. Patient 's QTc interval stayed below 480 ms. Therefore we'll increase sotalol dose to 120 mg a day. His QTc interval again was within acceptable limits. However this morning his QTc interval was 498 ms therefore we give sotalol 80 mg in the morning. QTc interval was 476. Therefore the patient will continue on sotalol 80 mg twice a day and follow-up in office in one week. Discussion & Recommendations Discussion We will continue sotalol 80 mg twice a day. He will continue Eliquis. Discussed at length with the patient this morning. Hopefully we'll schedule for cardioversion in the next 2-3 weeks. I'll follow-up in the office in one to 2 weeks. Discharge took over 30 minutes to complete. Follow up appt.: Dr. Campoverde in one to 2 weeks. Activity as Tolerated: Yes Home Medications Reviewed patient Home Medication Reconciliation performed by pharmacy medication reconciliations emissions repair technician and/or nursing. Patients Allergies have been reviewed. Discharge Home Medications: Reviewed and agree with Discharge Medication list on patient's Discharge Instruction sheet Condition at discharge Stable. Instructions to patient/family See above. Clinical Quality Measures DVT/VTE Risk/Contraindication: Risk Factor Score Per Nursin RFS Level Per Nursing on Admit: 4+=Very High Kareen CAMPOVERDE MD Aug 08, 2017 12:39
[2017-08-08] MEDS ORDERED: SOTA80TA PO (12:49)
== END 2017-08-08 13:45 | disposition home or self-care (01) | DRG 309 ==
LOC: 4TH 16:59
PROVIDERS: ADMIT Internal Medicine Interventional Cardiology; ATTEND Internal Medicine Interventional Cardiology
DX: I48.0 Paroxysmal atrial fibrillation (principal); E66.01 Morbid (severe) obesity due to excess calories; Z68.44 Body mass index [BMI] 60.0-69.9, adult; G47.33 Obstructive sleep apnea (adult) (pediatric); J44.9 Chronic obstructive pulmonary disease, unspecified; F17.210 Nicotine dependence, cigarettes, uncomplicated
CPT/HCPCS: 36415; 80053; 84484; 85025; 93005; 94640; 94760

== ENCOUNTER 2017-08-25 08:10 | Day surgery (SDC) | payer MEDICARE, OTHER ==
[~2017-08-25] VITALS: Ht 175.3 cm; Wt 181.4 kg
[~2017-08-25 08:10] MED LIST changes: +DILT180C82 PO; -METF500T4 PO; +METF500T5 PO; +SOTA80TA PO
[2017-08-25] MEDS ORDERED: NS IV 1000 ML 1,000 ML IV SCH (08:15)
[2017-08-25 08:33] VITALS: BP 105/53
[2017-08-25] MEDS ORDERED: proPOfol 200 MG/20 ML (DIPRIVAN) VIAL IV ONE (08:52)
[2017-08-25] MEDS ORDERED: MIDAZOLAM 2 MG/2 ML (VERSED) VIAL ONE (08:52)
[2017-08-25] MEDS ORDERED: VERA100C4 PO (09:03)
[2017-08-25 09:39] VITALS: BP 91/59
[2017-08-25 09:47] VITALS: BP 106/58
[2017-08-25 10:11] VITALS: BP 82/40
[2017-08-25 10:20] VITALS: BP 88/67
--- NOTE | 2017-08-25 10:39 | Progress Note-Standard ---
Standard Progress Note Progress Notes/Assess & Plan Time Seen by Provider: 10:05 Final Diagnosis Consulted for sedation during cardioversion. History and chart reviewed. Propofol 80 mg IV given pt mac well. Report to RN care assumed. ASA 4. Mac sedation LIAM LEONARDO CRNA Aug 25, 2017 10:39
[2017-08-25 10:54] VITALS: BP 100/63
--- NOTE | 2017-08-25 11:17 | Cardioversion ---
Cardioversion PROCEDURE PHYSICIAN: Rani Campoverde MD DATE OF PROCEDURE: 08/25/17 DIRECT EXTERNAL ELECTRICAL CARDIOVERSION: Indications: Atrial Fibrillation with rapid ventricular rate Preoperative diagnoses: Atrial Fibrillation with rapid ventricular rate Postoperative diagnosis: Sinus rhythm, Successful Electrical Cardioversion History: this is a 56-year-old gentleman with persistent atrial fibrillation with rapid ventricular rate. He was started on sotalol loading previously. He is on 80 mg twice a day. He is on uninterrupted oral anticoagulation. Anesthesia: By Anesthesia services Complications: None Specimen: None Contrast: 0 Flouroscopy: none Procedure Details: The patient was brought the tutorial laboratory supervisor after informed consent was taken, all the risks and complications were explained including the risk of stroke. Electrical cardioversion was carried out with anesthesia support with propofol. 200 joules of synchronized shock was delivered through external patches which promptly restored sinus rhythm. The patient tolerated the procedure well. Conclusions: 1.Successful Cardioversion. 2.Continue oral anticoagulation and rate controlling agent. 3.Follow up in office in 7 days. Rani Campoverde MD, RS, CCDS Cardiac Electrophysiology Kareen CAMPOVERDE MD Aug 25, 2017 11:17 am
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
--- OUTSIDE RECORDS SUMMARY | 2017-08-25 13:16 | XMS REPORT | Continuity of Care Document ---
Author Author [facility] Organization [facility] Address Unknown Phone Unavailable Allergies Active Description Code Type Severity Reaction Onset Reported/Identified Relationship to Patient Clinical Status Yes iodine [id number] Drug Allergy Mild N/A 09/18/2015 Yes No Known Drug Allergies [id number] Drug Allergy Unknown N/A 09/18/2015 Medications There is no data. Problems Date Dx Coded Attending Type Code Diagnosis Diagnosed By 09/19/2015 RADHA CARMEN MD, Ot B37.2 CANDIDIASIS OF SKIN AND NAIL 09/19/2015 RADHA CARMEN MD, Ot E11.9 TYPE 2 DIABETES MELLITUS WITHOUT COMPLIC 09/19/2015 RADHA CARMEN MD, Ot E66.01 MORBID (SEVERE) OBESITY DUE TO EXCESS CA 09/19/2015 RADHA CARMEN MD, Ot F17.210 NICOTINE DEPENDENCE, CIGARETTES, UNCOMPL 09/19/2015 RADHA CARMEN MD, Ot I10 ESSENTIAL (PRIMARY) HYPERTENSION 09/19/2015 RADHA CARMEN MD, Ot N39.0 URINARY TRACT INFECTION, SITE NOT SPECIF 09/19/2015 RADHA CARMEN MD, Ot Z68.43 BODY MASS INDEX (BMI) 50-59.9 , ADULT 10/07/2015 RADHA CARMEN MD, Ot A41.9 SEPSIS, UNSPECIFIED ORGANISM 10/07/2015 RADHA CARMEN MD, Ot E11.9 TYPE 2 DIABETES MELLITUS WITHOUT COMPLIC 10/07/2015 RADHA CARMEN MD, Ot E66.01 MORBID (SEVERE) OBESITY DUE TO EXCESS CA 10/07/2015 RADHA CARMEN MD Ot E78.0 PURE HYPERCHOLESTEROLEMIA 10/07/2015 RADHA CARMEN MD, Ot F17.210 NICOTINE DEPENDENCE, CIGARETTES, UNCOMPL 10/07/2015 RADHA CARMEN MD, Ot I10 ESSENTIAL (PRIMARY) HYPERTENSION 10/07/2015 RADHA CARMEN MD, Ot I48.91 UNSPECIFIED ATRIAL FIBRILLATION 10/07/2015 RADHA CARMEN MD, Ot I73.9 PERIPHERAL VASCULAR DISEASE, UNSPECIFIED 10/07/2015 RADHA CARMEN MD, Ot J44.9 CHRONIC OBSTRUCTIVE PULMONARY DISEASE, U 10/07/2015 RADHA CARMEN MD, Ot 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 10/07/2015 RADHA CARMEN MD, Ot N10 ACUTE TUBULO-INTERSTITIAL NEPHRITIS 10/07/2015 RADHA CARMEN MD Ot R09.02 HYPOXEMIA 10/07/2015 RADHA CARMEN MD, Ot Z68.43 BODY MASS INDEX (BMI) 50-59.9 , ADULT 10/07/2015 RADHA CARMEN MD, Ot A41.9 SEPSIS, UNSPECIFIED ORGANISM 10/07/2015 RADHA CARMEN MD Ot E11.9 TYPE 2 DIABETES MELLITUS WITHOUT COMPLIC 10/07/2015 RADHA CARMEN MD, Ot E66.01 MORBID (SEVERE) OBESITY DUE TO EXCESS CA 10/07/2015 RADHA CARMEN MD Ot E78.0 PURE HYPERCHOLESTEROLEMIA 10/07/2015 RADHA CARMEN MD, Ot F17.210 NICOTINE DEPENDENCE, CIGARETTES, UNCOMPL 10/07/2015 RADHA CARMEN MD, Ot I10 ESSENTIAL (PRIMARY) HYPERTENSION 10/07/2015 RADHA CARMEN MD Ot I48.91 UNSPECIFIED ATRIAL FIBRILLATION 10/07/2015 RADHA CARMEN MD, Ot I73.9 PERIPHERAL VASCULAR DISEASE, UNSPECIFIED 10/07/2015 RADHA CARMEN MD, Ot J44.9 CHRONIC OBSTRUCTIVE PULMONARY DISEASE, U 10/07/2015 RADHA CARMEN MD, Ot 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 10/07/2015 RADHA CARMEN MD, Ot N10 ACUTE TUBULO-INTERSTITIAL NEPHRITIS 10/07/2015 RADHA CARMEN MD Ot R09.02 HYPOXEMIA 10/07/2015 RADHA CARMEN MD, Ot Z68.43 BODY MASS INDEX (BMI) 50-59.9 , ADULT 12/03/2016 GIUSEPPE RAMIREZ MD Ot B19.20 UNSPECIFIED VIRAL HEPATITIS C WITHOUT HE 12/03/2016 GIUSEPPE RAMIREZ MD Ot E11.9 TYPE 2 DIABETES MELLITUS WITHOUT COMPLIC 12/03/2016 GIUSEPPE RAMIREZ MD Ot E66.01 MORBID (SEVERE) OBESITY DUE TO EXCESS CA 12/03/2016 GIUSEPPE RAMIREZ MD Ot F12.90 CANNABIS USE, UNSPECIFIED, UNCOMPLICATED 12/03/2016 GIUSEPPE RAMIREZ MD Ot F17.210 NICOTINE DEPENDENCE, CIGARETTES, UNCOMPL 12/03/2016 GIUSEPPE RAMIREZ MD Ot G47.30 SLEEP APNEA, UNSPECIFIED 12/03/2016 GIUSEPPE RAMIREZ MD Ot I10 ESSENTIAL (PRIMARY) HYPERTENSION 12/03/2016 GIUSEPPE RAMIREZ MD Ot I48.91 UNSPECIFIED ATRIAL FIBRILLATION 12/03/2016 GIUSEPPE RAMIREZ MD, Ot I87.2 VENOUS INSUFFICIENCY (CHRONIC) (PERIPHER 12/03/2016 GIUSEPPE RAMIREZ MD, Ot J44.9 CHRONIC OBSTRUCTIVE PULMONARY DISEASE, U 12/03/2016 GIUSEPPE RAMIREZ MD Ot L03.115 CELLULITIS OF RIGHT LOWER LIMB 12/03/2016 GIUSEPPE RAMIREZ MD Ot L03.116 CELLULITIS OF LEFT LOWER LIMB 12/03/2016 GIUSEPPE RAMIREZ MD Ot R07.9 CHEST PAIN, UNSPECIFIED 12/03/2016 GIUSEPPE RAMIREZ MD, Ot Z68.44 BODY MASS INDEX (BMI) 60.0-69.9, ADULT 01/16/2017 KASEY VALDES MD Ot G47.33 OBSTRUCTIVE SLEEP APNEA (ADULT) (PEDIATR 01/22/2017 KASEY VALDES MD Ot G47.33 OBSTRUCTIVE SLEEP APNEA (ADULT) (PEDIATR 01/28/2017 KASEY VALDES MD, Ot G47.33 OBSTRUCTIVE SLEEP APNEA (ADULT) (PEDIATR 01/28/2017 KASEY VALDES MD Ot G47.33 OBSTRUCTIVE SLEEP APNEA (ADULT) (PEDIATR 02/02/2017 KASEY VALDES MD Ot G47.33 OBSTRUCTIVE SLEEP APNEA (ADULT) (PEDIATR 02/07/2017 KASEY VALDES MD Ot E11.9 TYPE 2 DIABETES MELLITUS WITHOUT COMPLIC 02/07/2017 KASEY VALDES MD Ot E66.9 OBESITY, UNSPECIFIED 02/07/2017 KASEY VALDES MD Ot E78.5 HYPERLIPIDEMIA, UNSPECIFIED 02/07/2017 KASEY VALDES MD Ot G47.30 SLEEP APNEA, UNSPECIFIED 02/07/2017 KASEY VALDES MD Ot I10 ESSENTIAL (PRIMARY) HYPERTENSION 02/07/2017 KASEY VALDES MD Ot I25.10 ATHSCL HEART DISEASE OF [place] CORONARY 02/07/2017 KASEY VALDES MD Ot I48.91 UNSPECIFIED ATRIAL FIBRILLATION 02/07/2017 KASEY VALDES MD Ot I50.9 HEART FAILURE, UNSPECIFIED 02/07/2017 KASEY VALDES MD Ot J44.9 CHRONIC OBSTRUCTIVE PULMONARY DISEASE, U 02/07/2017 KASEY VALDES MD Ot R07.89 OTHER CHEST PAIN 02/07/2017 KASEY VALDES MD Ot Z68.44 BODY MASS INDEX (BMI) 60.0-69.9, ADULT 02/07/2017 KASEY VALDES MD Ot Z79.01 FCI (CURRENT) USE OF ANTICOAGULANT 02/07/2017 KASEY VALDES MD Ot Z79.84 [facility]CI (CURRENT) USE OF ORAL HYPOGLYC 02/07/2017 KASEY VALDES MD Ot Z79.899 OTHER PLUG PASTER (CURRENT) DRUG THERAPY 02/07/2017 KASEY VALDES MD Ot Z87.891 PERSONAL HISTORY OF NICOTINE DEPENDENCE 02/09/2017 KASEY VALDES MD Ot E11.9 TYPE 2 DIABETES MELLITUS WITHOUT COMPLIC 02/09/2017 KASEY VALDES MD Ot E66.9 OBESITY, UNSPECIFIED 02/09/2017 KASEY VALDES MD Ot E78.5 HYPERLIPIDEMIA, UNSPECIFIED 02/09/2017 KASEY VALDES MD Ot G47.30 SLEEP APNEA, UNSPECIFIED 02/09/2017 KASEY VALDES MD Ot I10 ESSENTIAL (PRIMARY) HYPERTENSION 02/09/2017 KASEY VALDES MD Ot I25.10 ATHSCL HEART DISEASE OF [place] CORONARY 02/09/2017 KASEY VALDES MD Ot I48.91 UNSPECIFIED ATRIAL FIBRILLATION 02/09/2017 KASEY VALDES MD Ot I50.9 HEART FAILURE, UNSPECIFIED 02/09/2017 KASEY VALDES MD Ot J44.9 CHRONIC OBSTRUCTIVE PULMONARY DISEASE, U 02/09/2017 KASEY VALDES MD Ot R07.89 OTHER CHEST PAIN 02/09/2017 KASEY VALDES MD Ot Z68.44 BODY MASS INDEX (BMI) 60.0-69.9, ADULT 02/09/2017 KASEY VALDES MD Ot Z79.01 PLUG PASTER (CURRENT) USE OF ANTICOAGULANT 02/09/2017 KASEY VALDES MD Ot Z79.84 PLUG PASTER (CURRENT) USE OF ORAL HYPOGLYC 02/09/2017 KASEY VALDES MD Ot Z79.899 OTHER [facility] (CURRENT) DRUG THERAPY 02/09/2017 KASEY VALDES MD Ot Z87.891 PERSONAL HISTORY OF NICOTINE DEPENDENCE 02/10/2017 KASEY VALDES MD Ot I48.91 UNSPECIFIED ATRIAL FIBRILLATION 02/10/2017 KASEY VALDES MD Ot I50.9 HEART FAILURE, UNSPECIFIED 02/10/2017 KASEY VALDES MD Ot J44.9 CHRONIC OBSTRUCTIVE PULMONARY DISEASE, U 02/10/2017 KASEY VALDES MD Ot R06.02 SHORTNESS OF BREATH 02/10/2017 KASEY VALDES MD Ot R07.9 CHEST PAIN, UNSPECIFIED 02/11/2017 KASEY VALDES MD Ot I48.91 UNSPECIFIED ATRIAL FIBRILLATION 02/11/2017 KASEY VALDES MD Ot I50.9 HEART FAILURE, UNSPECIFIED 02/11/2017 KASEY VALDES MD Ot J44.9 CHRONIC OBSTRUCTIVE PULMONARY DISEASE, U 02/11/2017 KASEY VALDES MD Ot R06.02 SHORTNESS OF BREATH 02/11/2017 KASEY VALDES MD Ot R07.9 CHEST PAIN, UNSPECIFIED 03/02/2017 MARCIN LEBRON MAINSPRING WINDER Ot J44.9 CHRONIC OBSTRUCTIVE PULMONARY DISEASE, U 03/02/2017 MARCIN LEBRON MAINSPRING WINDER Ot J45.909 UNSPECIFIED ASTHMA, UNCOMPLICATED 03/02/2017 MARCIN LEBRON MAINSPRING WINDER Ot R06.02 SHORTNESS OF BREATH 03/10/2017 MARCIN LEBRON MAINSPRING WINDER Ot F17.201 NICOTINE DEPENDENCE, UNSPECIFIED, IN REM 03/10/2017 MARCIN LEBRON MAINSPRING WINDER Ot J44.9 CHRONIC OBSTRUCTIVE PULMONARY DISEASE, U 03/10/2017 MARCIN LEBRON MAINSPRING WINDER Ot J45.909 UNSPECIFIED ASTHMA, UNCOMPLICATED 03/10/2017 MARCIN LEBRON MAINSPRING WINDER Ot R06.02 SHORTNESS OF BREATH 04/13/2017 KASEY VALDES MD Ot E11.9 TYPE 2 DIABETES MELLITUS WITHOUT COMPLIC 04/13/2017 KASEY VALDES MD Ot E78.5 HYPERLIPIDEMIA, UNSPECIFIED 04/13/2017 KAESY VALDES MD Ot G47.33 OBSTRUCTIVE SLEEP APNEA (ADULT) (PEDIATR 04/13/2017 KASEY VALDES MD Ot I11.0 HYPERTENSIVE HEART DISEASE WITH HEART FA 04/13/2017 KASEY VALDES MD Ot I48.91 UNSPECIFIED ATRIAL FIBRILLATION 04/13/2017 KASEY VALDES MD Ot I50.9 HEART FAILURE, UNSPECIFIED 04/13/2017 KASEY VALDES MD, Ot J44.9 CHRONIC OBSTRUCTIVE PULMONARY DISEASE, U 04/13/2017 KASEY VALDES MD Ot R82.90 UNSPECIFIED ABNORMAL FINDINGS IN URINE 04/13/2017 KASEY VALDES MD Ot Z11.2 ENCOUNTER FOR SCREENING FOR OTHER BACTER 04/13/2017 KASEY VALDES MD Ot Z79.82 PLUG PASTER (CURRENT) USE OF ASPIRIN 04/13/2017 KASEY VALDES MD Ot Z79.84 [facility] (CURRENT) USE OF ORAL HYPOGLYC 04/13/2017 KASEY VALDES MD Ot Z79.899 OTHER PLUG PASTER (CURRENT) DRUG THERAPY 04/21/2017 MARCIN LEBRON APRN Ot J44.9 CHRONIC OBSTRUCTIVE PULMONARY DISEASE, U 04/21/2017 MARCIN LEBRON APRN Ot J45.909 UNSPECIFIED ASTHMA, UNCOMPLICATED 04/21/2017 MARCIN LEBRON APRN Ot R06.02 SHORTNESS OF BREATH 04/21/2017 MARCIN LEBRON APRN Ot F17.201 NICOTINE DEPENDENCE, UNSPECIFIED, IN REM 04/21/2017 MARCIN LEBRON APRN Ot J44.9 CHRONIC OBSTRUCTIVE PULMONARY DISEASE, U 04/21/2017 MARCIN LEBRON APRN Ot J45.909 UNSPECIFIED ASTHMA, UNCOMPLICATED 04/21/2017 MARCIN LEBRON APRN Ot R06.02 SHORTNESS OF BREATH 04/22/2017 MARCIN LEBRON APRN Ot J44.9 CHRONIC OBSTRUCTIVE PULMONARY DISEASE, U 04/22/2017 MARCIN LEBRON APRN Ot J45.909 UNSPECIFIED ASTHMA, UNCOMPLICATED 04/22/2017 MARCIN LEBRON APRN Ot R06.02 SHORTNESS OF BREATH 04/27/2017 KASEY VALDES MD Ot E11.9 TYPE 2 DIABETES MELLITUS WITHOUT COMPLIC 04/27/2017 KASEY VALDES MD Ot E78.5 HYPERLIPIDEMIA, UNSPECIFIED 04/27/2017 KASEY VALDES MD Ot G47.33 OBSTRUCTIVE SLEEP APNEA (ADULT) (PEDIATR 04/27/2017 KASEY VALDES MD Ot I11.0 HYPERTENSIVE HEART DISEASE WITH HEART FA 04/27/2017 KASEY VALDES MD Ot I48.91 UNSPECIFIED ATRIAL FIBRILLATION 04/27/2017 KASEY VALDES MD Ot I50.9 HEART FAILURE, UNSPECIFIED 04/27/2017 KASEY VALDES MD Ot J44.9 CHRONIC OBSTRUCTIVE PULMONARY DISEASE, U 04/27/2017 KASEY VALDES MD Ot R82.90 UNSPECIFIED ABNORMAL FINDINGS IN URINE 04/27/2017 KASEY VALDES MD Ot Z11.2 ENCOUNTER FOR SCREENING FOR OTHER BACTER 04/27/2017 KASEY VALDES MD Ot Z79.82 [facility]CI (CURRENT) USE OF ASPIRIN 04/27/2017 KASEY VALDES MD Ot Z79.84 PLUG PASTER (CURRENT) USE OF ORAL HYPOGLYC 04/27/2017 KASEY VALDES MD Ot Z79.899 OTHER PLUG PASTER (CURRENT) DRUG THERAPY 04/27/2017 KASEY VALDES MD Ot E11.9 TYPE 2 DIABETES MELLITUS WITHOUT COMPLIC 04/27/2017 KASEY VALDES MD Ot E78.5 HYPERLIPIDEMIA, UNSPECIFIED 04/27/2017 KASEY VALDES MD Ot G47.33 OBSTRUCTIVE SLEEP APNEA (ADULT) (PEDIATR 04/27/2017 KASEY VALDES MD Ot I11.0 HYPERTENSIVE HEART DISEASE WITH HEART FA 04/27/2017 KASEY VALDES MD Ot I48.91 UNSPECIFIED ATRIAL FIBRILLATION 04/27/2017 KASEY VALDES MD Ot I50.9 HEART FAILURE, UNSPECIFIED 04/27/2017 KASEY VALDES MD Ot J44.9 CHRONIC OBSTRUCTIVE PULMONARY DISEASE, U 04/27/2017 KASEY VALDES MD Ot R82.90 UNSPECIFIED ABNORMAL FINDINGS IN URINE 04/27/2017 KASEY VALDES MD Ot Z11.2 ENCOUNTER FOR SCREENING FOR OTHER BACTER 04/27/2017 KASEY VALDES MD Ot Z79.82 PLUG PASTER (CURRENT) USE OF ASPIRIN 04/27/2017 KASEY VALDES MD Ot Z79.84 PLUG PASTER (CURRENT) USE OF ORAL HYPOGLYC 04/27/2017 KASEY VALDES MD Ot Z79.899 OTHER [facility] (CURRENT) DRUG THERAPY 07/05/2017 Kareen ROBLES MD Ot E66.9 OBESITY, UNSPECIFIED 07/05/2017 Kareen ROBLES MD Ot G47.33 OBSTRUCTIVE SLEEP APNEA (ADULT) (PEDIATR 07/05/2017 MARGARET ORDAZ, Kareen PUCKETT Ot I11.0 HYPERTENSIVE HEART DISEASE WITH HEART FA 07/05/2017 Kareen ROBLES MD Ot I48.0 PAROXYSMAL ATRIAL FIBRILLATION 07/05/2017 Kareen ROBLES MD Ot I50.9 HEART FAILURE, UNSPECIFIED 07/05/2017 Kareen ROBLES MD, Ot J43.9 EMPHYSEMA, UNSPECIFIED 07/05/2017 Kareen ROBLES MD Ot Z68.44 BODY MASS INDEX (BMI) 60.0-69.9, ADULT 07/05/2017 Kareen ROBLES MD Ot Z79.01 [facility] (CURRENT) USE OF ANTICOAGULANT 07/05/2017 Kareen ROBLES MD Ot Z79.82 [facility] (CURRENT) USE OF ASPIRIN 07/05/2017 Kareen ROBLES MD Ot Z79.899 OTHER PLUG PASTER (CURRENT) DRUG THERAPY 07/05/2017 Kareen ROBLES MD Ot Z87.891 PERSONAL HISTORY OF NICOTINE DEPENDENCE 07/06/2017 Kareen ROBLES MD Ot E66.9 OBESITY, UNSPECIFIED 07/06/2017 Kareen ROBLES MD Ot G47.33 OBSTRUCTIVE SLEEP APNEA (ADULT) (PEDIATR 07/06/2017 Kareen ROBLES MD Ot I11.0 HYPERTENSIVE HEART DISEASE WITH HEART FA 07/06/2017 Kareen ROBLES MD Ot I48.0 PAROXYSMAL ATRIAL FIBRILLATION 07/06/2017 Kareen ROBLES MD Ot I50.9 HEART FAILURE, UNSPECIFIED 07/06/2017 Kareen ROBLES MD Ot J43.9 EMPHYSEMA, UNSPECIFIED 07/06/2017 Kareen ROBLES MD Ot Z68.44 BODY MASS INDEX (BMI) 60.0-69.9, ADULT 07/06/2017 Kareen ROBLES MD Ot Z79.01 [facility] (CURRENT) USE OF ANTICOAGULANT 07/06/2017 Kareen ROBLES MD Ot Z79.82 [facility] (CURRENT) USE OF ASPIRIN 07/06/2017 Kareen ROBLES MD Ot Z79.899 OTHER PLUG PASTER (CURRENT) DRUG THERAPY 07/06/2017 Kareen ROBLES MD Ot Z87.891 PERSONAL HISTORY OF NICOTINE DEPENDENCE 07/29/2017 Kareen ROBLES MD Ot E66.9 OBESITY, UNSPECIFIED 07/29/2017 Kareen ROBLES MD Ot G47.33 OBSTRUCTIVE SLEEP APNEA (ADULT) (PEDIATR 07/29/2017 Kareen ROBLES MD Ot I11.0 HYPERTENSIVE HEART DISEASE WITH HEART FA 07/29/2017 Kareen ROBLES MD Ot I48.0 PAROXYSMAL ATRIAL FIBRILLATION 07/29/2017 Kareen ROBLES MD Ot I50.9 HEART FAILURE, UNSPECIFIED 07/29/2017 Kareen ROBLES MD Ot J43.9 EMPHYSEMA, UNSPECIFIED 07/29/2017 Kareen ROBLES MD Ot Z68.44 BODY MASS INDEX (BMI) 60.0-69.9, ADULT 07/29/2017 Kareen ROBLES MD Ot Z79.01 [facility]CI (CURRENT) USE OF ANTICOAGULANT 07/29/2017 Kareen ROBLES MD Ot Z79.82 [facility] (CURRENT) USE OF ASPIRIN 07/29/2017 Kareen ROBLES MD Ot Z79.899 OTHER [facility] (CURRENT) DRUG THERAPY 07/29/2017 Kareen ROBLES MD Ot Z87.891 PERSONAL HISTORY OF NICOTINE DEPENDENCE 07/29/2017 KASEY VALDES MD Ot I48.91 UNSPECIFIED ATRIAL FIBRILLATION 07/29/2017 KASEY VALDES MD Ot I50.9 HEART FAILURE, UNSPECIFIED 07/29/2017 KASEY VALDES MD Ot J44.9 CHRONIC OBSTRUCTIVE PULMONARY DISEASE, U 07/29/2017 LUCIO ORDAZ, KASEY Holder Ot R06.02 SHORTNESS OF BREATH 07/29/2017 LUCIO ORDAZ, KASEY Holder Ot R07.9 CHEST PAIN, UNSPECIFIED 07/29/2017 MARCIN LEBRON APRN Ot J44.9 CHRONIC OBSTRUCTIVE PULMONARY DISEASE, U 07/29/2017 MARCIN LEBRON MAINSPRING WINDER Ot J45.909 UNSPECIFIED ASTHMA, UNCOMPLICATED 07/29/2017 VIMARCIN FRENCH MAINSPRING WINDER Ot R06.02 SHORTNESS OF BREATH 07/29/2017 MARCIN LEBRON E MA[employer]ING WINDER Ot F17.201 NICOTINE DEPENDENCE, UNSPECIFIED, IN REM 07/29/2017 MARCIN LEBRON APRN Ot J44.9 CHRONIC OBSTRUCTIVE PULMONARY DISEASE, U 07/29/2017 MARCIN LEBRON APRN Ot J45.909 UNSPECIFIED ASTHMA, UNCOMPLICATED 07/29/2017 MARCIN LEBRON APRN Ot R06.02 SHORTNESS OF BREATH 07/29/2017 Kareen ROBLES MD Ot E66.9 OBESITY, UNSPECIFIED 07/29/2017 Kareen ROBLES MD Ot G47.33 OBSTRUCTIVE SLEEP APNEA (ADULT) (PEDIATR 07/29/2017 Kareen ROBLES MD Ot I11.0 HYPERTENSIVE HEART DISEASE WITH HEART FA 07/29/2017 Kareen ROBLES MD Ot I48.0 PAROXYSMAL ATRIAL FIBRILLATION 07/29/2017 Kareen ROBLES MD Ot I50.9 HEART FAILURE, UNSPECIFIED 07/29/2017 Kareen ROBLES MD Ot J43.9 EMPHYSEMA, UNSPECIFIED 07/29/2017 Kareen ROBLES MD Ot Z68.44 BODY MASS INDEX (BMI) 60.0-69.9, ADULT 07/29/2017 Kareen ROBLES MD Ot Z79.01 [facility] (CURRENT) USE OF ANTICOAGULANT 07/29/2017 Kareen ROBLES MD Ot Z79.82 PLUG PASTER (CURRENT) USE OF ASPIRIN 07/29/2017 Kareen ROBLES MD, Ot Z79.899 OTHER PLUG PASTER (CURRENT) DRUG THERAPY 07/29/2017 Kareen ROBLES MD, Ot Z87.891 PERSONAL HISTORY OF NICOTINE DEPENDENCE 08/08/2017 Kareen ROBLES MD Ot E66.01 MORBID (SEVERE) OBESITY DUE TO EXCESS CA 08/08/2017 Kareen ROBLES MD Ot F17.210 NICOTINE DEPENDENCE, CIGARETTES, UNCOMPL 08/08/2017 Kareen ROBLES MD Ot G47.33 OBSTRUCTIVE SLEEP APNEA (ADULT) (PEDIATR 08/08/2017 Kareen ROBLES MD Ot I48.0 PAROXYSMAL ATRIAL FIBRILLATION 08/08/2017 Kareen ROBLES MD, Ot J44.9 CHRONIC OBSTRUCTIVE PULMONARY DISEASE, U 08/08/2017 Kareen ROBLES MD Ot Z68.44 BODY MASS INDEX (BMI) 60.0-69.9, ADULT 08/19/2017 Kareen ROBLES MD Ot E66.9 OBESITY, UNSPECIFIED 08/19/2017 Kareen ROBLES MD Ot G47.33 OBSTRUCTIVE SLEEP APNEA (ADULT) (PEDIATR 08/19/2017 Kareen ROBLES MD Ot I11.0 HYPERTENSIVE HEART DISEASE WITH HEART FA 08/19/2017 Kareen ROBLES MD Ot I48.0 PAROXYSMAL ATRIAL FIBRILLATION 08/19/2017 Kareen ROBLES MD Ot I50.9 HEART FAILURE, UNSPECIFIED 08/19/2017 Kareen ROBLES MD Ot J43.9 EMPHYSEMA, UNSPECIFIED 08/19/2017 Kareen ROBLES MD Ot Z68.44 BODY MASS INDEX (BMI) 60.0-69.9, ADULT 08/19/2017 Kareen ROBLES MD Ot Z79.01 FCI (CURRENT) USE OF ANTICOAGULANT 08/19/2017 Kareen ROBLES MD Ot Z79.82 [facility] (CURRENT) USE OF ASPIRIN 08/19/2017 Kareen ROBLES MD Ot Z79.899 OTHER [facility] (CURRENT) DRUG THERAPY 08/19/2017 Kareen ROBLES MD, Ot Z87.891 PERSONAL HISTORY OF NICOTINE DEPENDENCE 08/25/2017 KASEY VALDES MD Ot I48.91 UNSPECIFIED ATRIAL FIBRILLATION 08/25/2017 LUCIO MD, BASHAR J Ot I50.9 HEART FAILURE, UNSPECIFIED 08/25/2017 KASEY VALDES MD Ot J44.9 CHRONIC OBSTRUCTIVE PULMONARY DISEASE, U 08/25/2017 KASEY VALDES MD Ot R06.02 SHORTNESS OF BREATH 08/25/2017 KASEY VALDES MD Ot R07.9 CHEST PAIN, UNSPECIFIED 08/25/2017 VIMARCIN FRENCH MAINSPRING WINDER Ot J44.9 CHRONIC OBSTRUCTIVE PULMONARY DISEASE, U 08/25/2017 MARCIN LEBRON MA[place] WINDER Ot J45.909 UNSPECIFIED ASTHMA, UNCOMPLICATED 08/25/2017 VIMARCIN FRENCH MAINSPRING WINDER Ot R06.02 SHORTNESS OF BREATH 08/25/2017 MARCIN LEBRON MAINSPRING WINDER Ot F17.201 NICOTINE DEPENDENCE, UNSPECIFIED, IN REM 08/25/2017 MARCIN LEBRON MA[place] WINDER Ot J44.9 CHRONIC OBSTRUCTIVE PULMONARY DISEASE, U 08/25/2017 MARCIN LEBRON MAINS[place] WINDER Ot J45.909 UNSPECIFIED ASTHMA, UNCOMPLICATED 08/25/2017 MARCIN LEBRON APRN Ot R06.02 SHORTNESS OF BREATH 08/25/2017 Kareen ROBLES MD Ot E66.9 OBESITY, UNSPECIFIED 08/25/2017 Kareen ROBLES MD Ot G47.33 OBSTRUCTIVE SLEEP APNEA (ADULT) (PEDIATR 08/25/2017 Kareen ROBLES MD Ot I11.0 HYPERTENSIVE HEART DISEASE WITH HEART FA 08/25/2017 Kareen ROBLES MD Ot I48.0 PAROXYSMAL ATRIAL FIBRILLATION 08/25/2017 Kareen ROBLES MD Ot I50.9 HEART FAILURE, UNSPECIFIED 08/25/2017 Kareen ROBLES MD Ot J43.9 EMPHYSEMA, UNSPECIFIED 08/25/2017 Kareen ROBLES MD Ot Z68.44 BODY MASS INDEX (BMI) 60.0-69.9, ADULT 08/25/2017 Kareen ROBLES MD Ot Z79.01 [facility] (CURRENT) USE OF ANTICOAGULANT 08/25/2017 Kareen ROBLES MD Ot Z79.82 [facility] (CURRENT) USE OF ASPIRIN 08/25/2017 Kareen ROBLES MD Ot Z79.899 OTHER [facility] (CURRENT) DRUG THERAPY 08/25/2017 MARGARET ORDAZ, Kareen PUCKETT Ot Z87.891 PERSONAL HISTORY OF NICOTINE DEPENDENCE Procedures There is no data. Results Test Result Range Methicillin resistant Staphylococcus aureus (MRSA) screening culture - 08:00 Methicillin resistant Staphylococcus aureus (MRSA) screening culture NEG NRG Complete blood count (CBC) with automated white blood cell (WBC) differential - 12/02/16 11:05 Blood leukocytes automated count (number/volume) 11.7 10*3/uL 4.3-11.0 Blood erythrocytes automated count (number/volume) 5.09 10*6/uL 4.35-5.85 Venous blood hemoglobin measurement (mass/volume) 15.0 g/dL 13.3-17.7 Blood hematocrit (volume fraction) 48 % 40-54 Automated erythrocyte mean corpuscular volume 94 [foz_us] 80-99 Automated erythrocyte mean corpuscular hemoglobin (mass per erythrocyte) 30 pg 25-34 Automated erythrocyte mean corpuscular hemoglobin concentration measurement ( mass/volume) 32 g/dL 32-36 Automated erythrocyte distribution width ratio 16.3 % 10.0-14.5 Automated blood platelet count (count/volume) 237 10*3/uL 130-400 Automated blood platelet mean volume measurement 9.8 [foz_us] 7.4-10.4 Automated blood neutrophils/100 leukocytes 72 % 42-75 Automated blood lymphocytes/100 leukocytes 15 % 12-44 Blood monocytes/100 leukocytes 8 % 0-12 Automated blood eosinophils/100 leukocytes 5 % 0-10 Automated blood basophils/100 leukocytes 0 % 0-10 Blood neutrophils automated count (number/volume) 8.4 10*3 1.8-7.8 Blood lymphocytes automated count (number/volume) 1.8 10*3 1.0-4.0 Blood monocytes automated count (number/volume) 0.9 10*3 0.0-1.0 Automated eosinophil count 0.6 10*3/uL 0.0-0.3 Automated blood basophil count (count/volume) 0.1 10*3/uL 0.0-0.1 PT panel in platelet poor plasma by coagulation assay - 12/02/16 11:05 Prothrombin time (PT) in platelet poor plasma by coagulation assay 13.4 s 12.2-14.7 INR in platelet poor plasma or blood by coagulation assay 1.1 0.8-1.4 Activated partial thromboplastin time (aPTT) in platelet poor plasma bycoagulation assay - 12/02/16 11:05 Activated partial thromboplastin time (aPTT) in platelet poor plasma bycoagulation assay 31 s 24-35 Comprehensive metabolic panel - 12/02/16 11:05 Serum or plasma sodium measurement (moles/volume) 140 mmol/L 135-145 Serum or plasma potassium measurement (moles/volume) 4.2 mmol/L 3.6-5.0 Serum or plasma chloride measurement (moles/volume) 104 mmol/L 98-107 Carbon dioxide 28 mmol/L 21-32 Serum or plasma anion gap determination (moles/volume) 8 mmol/L 5-14 Serum or plasma urea nitrogen measurement (mass/volume) 14 mg/dL 7-18 Serum or plasma creatinine measurement (mass/volume) 0.81 mg/dL 0.60-1.30 Serum or plasma urea nitrogen/creatinine mass ratio 17 NRG Serum or plasma creatinine measurement with calculation of estimated glomerular filtration rate > NRG Serum or plasma glucose measurement (mass/volume) 109 mg/dL 70-105 Serum or plasma calcium measurement (mass/volume) 9.4 mg/dL 8.5-10.1 Serum or plasma total bilirubin measurement (mass/volume) 1.4 mg/dL 0.1-1.0 Serum or plasma alkaline phosphatase measurement (enzymatic activity/volume) 100 U/L 40-136 Serum or plasma aspartate aminotransferase measurement (enzymatic activity/ volume) 23 U/L 5-34 Serum or plasma alanine aminotransferase measurement (enzymatic activity/volume ) 30 U/L 0-55 Serum or plasma protein measurement (mass/volume) 7.0 g/dL 6.4-8.2 Serum or plasma albumin measurement (mass/volume) 3.9 g/dL 3.2-4.5 Magnesium - 12/02/16 11:05 Magnesium 2.1 mg/dL 1.8-2.4 Serum or plasma creatine kinase measurement (enzymatic activity/volume) - 12/02 11:05 Serum or plasma creatine kinase measurement (enzymatic activity/volume) 216 U/L 30-200 Serum or plasma creatine kinase MB measurement (enzymatic activity/volume) - 11:05 Serum or plasma creatine kinase MB measurement (enzymatic activity/volume) 3.4 ng/mL <6.6 Serum or plasma troponin i.cardiac measurement (mass/volume) - 12/02/16 11:05 Serum or plasma troponin i.cardiac measurement (mass/volume) < ng/ mL <0.30 Serum or plasma lithium measurement (moles/volume) - 12/02/16 11:05 BNP level 155.4 pg/mL <100.0 Serum or plasma amylase measurement (enzymatic activity/volume) - 12/02/16 11: 05 Serum or plasma amylase measurement (enzymatic activity/volume) 77 U /L 25-125 Lipase - 12/02/16 11:05 Lipase 19 U/L 8-78 Serum or plasma thyrotropin measurement by detection limit <=0.05 miu/l (units/ volume) - 12/02/16 11:05 Serum or plasma thyrotropin measurement by detection limit <=0.05 miu/l (units/ volume) 0.89 u[iU]/mL 0.35-4.94 Complete urinalysis with reflex to culture - 12/02/16 14:40 Urine color determination YELLOW NRG Urine clarity determination CLEAR NRG Urine pH measurement by test strip 6 5-9 Specific gravity of urine by test strip 1.020 1.016- 1.022 Urine protein assay by test strip, semi-quantitative NEGATIVE NEGATIVE Urine glucose detection by automated test strip NEGATIVE NEGATIVE Erythrocytes detection in urine sediment by light microscopy 1+ NEGATIVE Urine ketones detection by automated test strip NEGATIVE NEGATIVE Urine nitrite detection by test strip NEGATIVE NEGATIVE Urine total bilirubin detection by test strip NEGATIVE NEGATIVE Urine urobilinogen measurement by automated test strip (mass/volume) NORMAL NORMAL Urine leukocyte esterase detection by dipstick 3+ NEGATIVE Automated urine sediment erythrocyte count by microscopy (number/high power field) NONE NRG Automated urine sediment leukocyte count by microscopy (number/high power field ) [HPF] NRG Bacteria detection in urine sediment by light microscopy MODERATE NRG Squamous epithelial cells detection in urine sediment by light microscopy 2-5 NRG Crystals detection in urine sediment by light microscopy NONE NRG Casts detection in urine sediment by light microscopy NONE NRG Mucus detection in urine sediment by light microscopy NEGATIVE NRG Complete urinalysis with reflex to culture YES NRG Urine drug screening test - 12/02/16 14:40 Urine phencyclidine detection by screening method NEGATIVE NEGATIVE Urine benzodiazepines detection by screening method NEGATIVE NEGATIVE Urine cocaine detection NEGATIVE NEGATIVE Urine amphetamines detection by screening method NEGATIVE NEGATIVE Urine methamphetamine detection by screening method NEGATIVE NEGATIVE Urine cannabinoids detection by screening method POSITIVE NEGATIVE Urine opiates detection by screening method NEGATIVE NEGATIVE Urine barbiturates detection NEGATIVE NEGATIVE Screening urine tricyclic antidepressants detection NEGATIVE NEGATIVE Urine methadone detection by screening method NEGATIVE NEGATIVE Urine oxycodone detection NEGATIVE NEGATIVE Urine propoxyphene detection NEGATIVE NEGATIVE Bacterial urine culture - 12/02/16 14:40 Bacterial urine culture [id number] NRG COLONY COUNT >100,000/ML NRG FTX;REPORTABLE SENSITIVITY REPORTED 12/04 08:10 NRG FREE TEXT ENTRY 3 MIXED GRAM POSITIVE MIKKI <10,000/ML NRG Bacterial susceptibility panel - 12/02/16 14:40 Gentamicin susceptibility test by minimum inhibitory concentration > = NRG Trimethoprim/sulfamethoxazole susceptibility test by minimum inhibitoryconcentration >= NRG Ampicillin susceptibility test by minimum inhibitory concentration > = NRG Tobramycin susceptibility test by minimum inhibitory concentration 8 NRG Cefazolin susceptibility test by minimum inhibitory concentration < = NRG Ceftriaxone susceptibility test by minimum inhibitory concentration <= NRG Ampicillin/sulbactam susceptibility test by minimum inhibitory concentration >= NRG Piperacillin/tazobactam susceptibility test by minimum inhibitory concentration <= NRG Ciprofloxacin susceptibility test by minimum inhibitory concentration 1 NRG Meropenem susceptibility test by minimum inhibitory concentration < = NRG Nitrofurantoin susceptibility test by minimum inhibitory concentration <= NRG Aztreonam susceptibility test by minimum inhibitory concentration < = NRG Extended spectrum beta lactamase (ESBL) producing bacteria susceptibility test by minimum inhibitory concentration - NRG Amikacin susceptibility test by minimum inhibitory concentration S NRG Capillary blood glucose measurement by glucometer (mass/volume) - 12/02/16 16: 08 Capillary blood glucose measurement by glucometer (mass/volume) 102 mg/dL 70-110 Serum or plasma troponin i.cardiac measurement (mass/volume) - 12/02/16 17:05 Serum or plasma troponin i.cardiac measurement (mass/volume) < ng/ mL <0.30 Capillary blood glucose measurement by glucometer (mass/volume) - 12/02/16 21: 15 Capillary blood glucose measurement by glucometer (mass/volume) 96 mg/dL 70-110 Complete blood count (CBC) with automated white blood cell (WBC) differential - 12/03/16 03:18 Blood leukocytes automated count (number/volume) 11.4 10*3/uL 4.3-11.0 Blood erythrocytes automated count (number/volume) 4.88 10*6/uL 4.35-5.85 Venous blood hemoglobin measurement (mass/volume) 14.7 g/dL 13.3-17.7 Blood hematocrit (volume fraction) 46 % 40-54 Automated erythrocyte mean corpuscular volume 93 [foz_us] 80-99 Automated erythrocyte mean corpuscular hemoglobin (mass per erythrocyte) 30 pg 25-34 Automated erythrocyte mean corpuscular hemoglobin concentration measurement ( mass/volume) 32 g/dL 32-36 Automated erythrocyte distribution width ratio 16.2 % 10.0-14.5 Automated blood platelet count (count/volume) 226 10*3/uL 130-400 Automated blood platelet mean volume measurement 10.7 [foz_us] 7.4-10.4 Automated blood neutrophils/100 leukocytes 69 % 42-75 Automated blood lymphocytes/100 leukocytes 18 % 12-44 Blood monocytes/100 leukocytes 8 % 0-12 Automated blood eosinophils/100 leukocytes 4 % 0-10 Automated blood basophils/100 leukocytes 0 % 0-10 Blood neutrophils automated count (number/volume) 7.9 10*3 1.8-7.8 Blood lymphocytes automated count (number/volume) 2.1 10*3 1.0-4.0 Blood monocytes automated count (number/volume) 0.9 10*3 0.0-1.0 Automated eosinophil count 0.5 10*3/uL 0.0-0.3 Automated blood basophil count (count/volume) 0.0 10*3/uL 0.0-0.1 Comprehensive metabolic panel - 12/03/16 03:18 Serum or plasma sodium measurement (moles/volume) 140 mmol/L 135-145 Serum or plasma potassium measurement (moles/volume) 3.7 mmol/L 3.6-5.0 Serum or plasma chloride measurement (moles/volume) 101 mmol/L 98-107 Carbon dioxide 23 mmol/L 21-32 Serum or plasma anion gap determination (moles/volume) 16 mmol/L 5-14 Serum or plasma urea nitrogen measurement (mass/volume) 17 mg/dL 7-18 Serum or plasma creatinine measurement (mass/volume) 0.81 mg/dL 0.60-1.30 Serum or plasma urea nitrogen/creatinine mass ratio 21 NRG Serum or plasma creatinine measurement with calculation of estimated glomerular filtration rate > NRG Serum or plasma glucose measurement (mass/volume) 101 mg/dL 70-105 Serum or plasma calcium measurement (mass/volume) 8.6 mg/dL 8.5-10.1 Serum or plasma total bilirubin measurement (mass/volume) 1.9 mg/dL 0.1-1.0 Serum or plasma alkaline phosphatase measurement (enzymatic activity/volume) 90 U/L 40-136 Serum or plasma aspartate aminotransferase measurement (enzymatic activity/ volume) 22 U/L 5-34 Serum or plasma alanine aminotransferase measurement (enzymatic activity/volume ) 30 U/L 0-55 Serum or plasma protein measurement (mass/volume) 6.5 g/dL 6.4-8.2 Serum or plasma albumin measurement (mass/volume) 3.7 g/dL 3.2-4.5 Lipid 1996 panel - 12/03/16 03:18 Serum or plasma triglyceride measurement (mass/volume) 142 mg/dL <150 Serum or plasma cholesterol measurement (mass/volume) 162 mg/dL < 200 Serum or plasma cholesterol in HDL measurement (mass/volume) 30 mg/ dL 40-60 Cholesterol in LDL [mass/volume] in serum or plasma by direct assay 121 mg/dL 1-129 Serum or plasma cholesterol in VLDL measurement (mass/volume) 28 mg/ dL 5-40 Capillary blood glucose measurement by glucometer (mass/volume) - 12/03/16 10: 39 Capillary blood glucose measurement by glucometer (mass/volume) 101 mg/dL 70-110 Automated blood complete blood count (hemogram) panel - 02/07/17 07:15 Blood leukocytes automated count (number/volume) 12.8 10*3/uL 4.3-11.0 Blood erythrocytes automated count (number/volume) 5.14 10*6/uL 4.35-5.85 Venous blood hemoglobin measurement (mass/volume) 15.3 g/dL 13.3-17.7 Blood hematocrit (volume fraction) 47 % 40-54 Automated erythrocyte mean corpuscular volume 92 [foz_us] 80-99 Automated erythrocyte mean corpuscular hemoglobin (mass per erythrocyte) 30 pg 25-34 Automated erythrocyte mean corpuscular hemoglobin concentration measurement ( mass/volume) 32 g/dL 32-36 Automated erythrocyte distribution width ratio 18.0 % 10.0-14.5 Automated blood platelet count (count/volume) 248 10*3/uL 130-400 Automated blood platelet mean volume measurement 9.8 [foz_us] 7.4-10.4 PT panel in platelet poor plasma by coagulation assay - 02/07/17 07:15 Prothrombin time (PT) in platelet poor plasma by coagulation assay 13.4 s 12.2-14.7 INR in platelet poor plasma or blood by coagulation assay 1.0 0.8-1.4 Activated partial thromboplastin time (aPTT) in platelet poor plasma bycoagulation assay - 02/07/17 07:15 Activated partial thromboplastin time (aPTT) in platelet poor plasma bycoagulation assay 33 s 24-35 Comprehensive metabolic panel - 02/07/17 07:15 Serum or plasma sodium measurement (moles/volume) 138 mmol/L 135-145 Serum or plasma potassium measurement (moles/volume) 4.4 mmol/L 3.6-5.0 Serum or plasma chloride measurement (moles/volume) 106 mmol/L 98-107 Carbon dioxide 23 mmol/L 21-32 Serum or plasma anion gap determination (moles/volume) 9 mmol/L 5-14 Serum or plasma urea nitrogen measurement (mass/volume) 24 mg/dL 7-18 Serum or plasma creatinine measurement (mass/volume) 0.98 mg/dL 0.60-1.30 Serum or plasma urea nitrogen/creatinine mass ratio 24 NRG Serum or plasma creatinine measurement with calculation of estimated glomerular filtration rate > NRG Serum or plasma glucose measurement (mass/volume) 111 mg/dL 70-105 Serum or plasma calcium measurement (mass/volume) 9.3 mg/dL 8.5-10.1 Serum or plasma total bilirubin measurement (mass/volume) 0.7 mg/dL 0.1-1.0 Serum or plasma alkaline phosphatase measurement (enzymatic activity/volume) 91 U/L 40-136 Serum or plasma aspartate aminotransferase measurement (enzymatic activity/ volume) 16 U/L 5-34 Serum or plasma alanine aminotransferase measurement (enzymatic activity/volume ) 19 U/L 0-55 Serum or plasma protein measurement (mass/volume) 7.2 g/dL 6.4-8.2 Serum or plasma albumin measurement (mass/volume) 4.1 g/dL 3.2-4.5 Lipid 1996 panel - 02/07/17 07:15 Serum or plasma triglyceride measurement (mass/volume) 121 mg/dL <150 Serum or plasma cholesterol measurement (mass/volume) 181 mg/dL < 200 Serum or plasma cholesterol in HDL measurement (mass/volume) 36 mg/ dL 40-60 Cholesterol in LDL [mass/volume] in serum or plasma by direct assay 134 mg/dL 1-129 Serum or plasma cholesterol in VLDL measurement (mass/volume) 24 mg/ dL 5-40 Methicillin resistant Staphylococcus aureus (MRSA) screening culture - 07:15 Methicillin resistant Staphylococcus aureus (MRSA) screening culture NEG NRG Arterial blood gas measurement - 03/01/17 15:20 Blood pCO2 41 mm[Hg] 35-45 Blood pO2 75 mm[Hg] 79-93 Arterial blood bicarbonate measurement (moles/volume) 24 mmol/L 23-27 Arterial blood base excess by calculation -0.4 mmol/L - 2.5-2.5 Arterial blood oxygen saturation measurement 97 % 94-100 * Inhaled oxygen flow rate RM NRG Arterial blood pH measurement with patient temperature correction 7.38 7.37-7.43 Arterial blood carbon dioxide, total measurement (moles/volume) 25.3 mmol/L 21.0-31.0 Body site R BRACH NRG Assessment of wrist artery patency prior to arterial puncture YES- POS NRG Setting of ventilation mode NO NRG Measurement of body temperature 97.7 NRG Automated blood complete blood count (hemogram) panel - 04/13/17 09:14 Blood leukocytes automated count (number/volume) 14.9 10*3/uL 4.3-11.0 Blood erythrocytes automated count (number/volume) 4.87 10*6/uL 4.35-5.85 Venous blood hemoglobin measurement (mass/volume) 15.4 g/dL 13.3-17.7 Blood hematocrit (volume fraction) 47 % 40-54 Automated erythrocyte mean corpuscular volume 96 [foz_us] 80-99 Automated erythrocyte mean corpuscular hemoglobin (mass per erythrocyte) 32 pg 25-34 Automated erythrocyte mean corpuscular hemoglobin concentration measurement ( mass/volume) 33 g/dL 32-36 Automated erythrocyte distribution width ratio 16.3 % 10.0-14.5 Automated blood platelet count (count/volume) 237 10*3/uL 130-400 Automated blood platelet mean volume measurement 10.0 [foz_us] 7.4-10.4 PT panel in platelet poor plasma by coagulation assay - 04/13/17 09:14 Prothrombin time (PT) in platelet poor plasma by coagulation assay 18.1 s 12.2-14.7 INR in platelet poor plasma or blood by coagulation assay 1.5 0.8-1.4 Activated partial thromboplastin time (aPTT) in platelet poor plasma bycoagulation assay - 04/13/17 09:14 Activated partial thromboplastin time (aPTT) in platelet poor plasma bycoagulation assay 39 s 24-35 Complete urinalysis with reflex to culture - 04/13/17 09:14 Urine color determination YELLOW NRG Urine clarity determination CLEAR NRG Urine pH measurement by test strip 5 5-9 Specific gravity of urine by test strip 1.020 1.016- 1.022 Urine protein assay by test strip, semi-quantitative NEGATIVE NEGATIVE Urine glucose detection by automated test strip NEGATIVE NEGATIVE Erythrocytes detection in urine sediment by light microscopy 1+ NEGATIVE Urine ketones detection by automated test strip NEGATIVE NEGATIVE Urine nitrite detection by test strip NEGATIVE NEGATIVE Urine total bilirubin detection by test strip NEGATIVE NEGATIVE Urine urobilinogen measurement by automated test strip (mass/volume) NORMAL NORMAL Urine leukocyte esterase detection by dipstick 2+ NEGATIVE Automated urine sediment erythrocyte count by microscopy (number/high power field) RARE NRG Automated urine sediment leukocyte count by microscopy (number/high power field ) [HPF] NRG Bacteria detection in urine sediment by light microscopy MODERATE NRG Squamous epithelial cells detection in urine sediment by light microscopy 2-5 NRG Crystals detection in urine sediment by light microscopy NONE NRG Casts detection in urine sediment by light microscopy NONE NRG Mucus detection in urine sediment by light microscopy NEGATIVE NRG Complete urinalysis with reflex to culture YES NRG Comprehensive metabolic panel - 04/13/17 09:14 Serum or plasma sodium measurement (moles/volume) 139 mmol/L 135-145 Serum or plasma potassium measurement (moles/volume) 4.5 mmol/L 3.6-5.0 Serum or plasma chloride measurement (moles/volume) 104 mmol/L 98-107 Carbon dioxide 25 mmol/L 21-32 Serum or plasma anion gap determination (moles/volume) 10 mmol/L 5-14 Serum or plasma urea nitrogen measurement (mass/volume) 28 mg/dL 7-18 Serum or plasma creatinine measurement (mass/volume) 1.06 mg/dL 0.60-1.30 Serum or plasma urea nitrogen/creatinine mass ratio 26 NRG Serum or plasma creatinine measurement with calculation of estimated glomerular filtration rate > NRG Serum or plasma glucose measurement (mass/volume) 111 mg/dL 70-105 Serum or plasma calcium measurement (mass/volume) 9.9 mg/dL 8.5-10.1 Serum or plasma total bilirubin measurement (mass/volume) 1.4 mg/dL 0.1-1.0 Serum or plasma alkaline phosphatase measurement (enzymatic activity/volume) 99 U/L 40-136 Serum or plasma aspartate aminotransferase measurement (enzymatic activity/ volume) 14 U/L 5-34 Serum or plasma alanine aminotransferase measurement (enzymatic activity/volume ) 17 U/L 0-55 Serum or plasma protein measurement (mass/volume) 7.5 g/dL 6.4-8.2 Serum or plasma albumin measurement (mass/volume) 4.1 g/dL 3.2-4.5 Bacterial urine culture - 04/13/17 09:14 Bacterial urine culture [id number] NRG COLONY COUNT <10,000 NRG FTX;REPORTABLE MUCOID COLONY NRG FREE TEXT ENTRY 2 SENSITIVITY REPORTED 04/16/17 10:35 NRG Methicillin resistant Staphylococcus aureus (MRSA) screening culture - 09:14 Methicillin resistant Staphylococcus aureus (MRSA) screening culture NEG [facility] Bacterial susceptibility panel - 04/13/17 09:14 Gentamicin susceptibility test by minimum inhibitory concentration > = NRG Trimethoprim/sulfamethoxazole susceptibility test by minimum inhibitoryconcentration S NRG Ampicillin susceptibility test by minimum inhibitory concentration > = NRG Tobramycin susceptibility test by minimum inhibitory concentration 8 NRG Cefazolin susceptibility test by minimum inhibitory concentration < = NRG Ceftriaxone susceptibility test by minimum inhibitory concentration <= NRG Ampicillin/sulbactam susceptibility test by minimum inhibitory concentration I NRG Piperacillin/tazobactam susceptibility test by minimum inhibitory concentration <= NRG Ciprofloxacin susceptibility test by minimum inhibitory concentration 1 NRG Meropenem susceptibility test by minimum inhibitory concentration < = NRG Nitrofurantoin susceptibility test by minimum inhibitory concentration <= NRG Aztreonam susceptibility test by minimum inhibitory concentration < = NRG Extended spectrum beta lactamase (ESBL) producing bacteria susceptibility test by minimum inhibitory concentration - NR Amikacin susceptibility test by minimum inhibitory concentration S [facility] Bacterial susceptibility panel - 04/13/17 09:14 Gentamicin susceptibility test by minimum inhibitory concentration > = NRG Trimethoprim/sulfamethoxazole susceptibility test by minimum inhibitoryconcentration R NRG Ampicillin susceptibility test by minimum inhibitory concentration > = NRG Tobramycin susceptibility test by minimum inhibitory concentration > = NRG Cefazolin susceptibility test by minimum inhibitory concentration < = NRG Ceftriaxone susceptibility test by minimum inhibitory concentration <= NRG Ampicillin/sulbactam susceptibility test by minimum inhibitory concentration I NRG Piperacillin/tazobactam susceptibility test by minimum inhibitory concentration <= NRG Ciprofloxacin susceptibility test by minimum inhibitory concentration 1 NRG Meropenem susceptibility test by minimum inhibitory concentration < = NRG Nitrofurantoin susceptibility test by minimum inhibitory concentration <= NRG Aztreonam susceptibility test by minimum inhibitory concentration < = NRG Extended spectrum beta lactamase (ESBL) producing bacteria susceptibility test by minimum inhibitory concentration - NRG Amikacin susceptibility test by minimum inhibitory concentration S NRG Complete blood count (CBC) with automated white blood cell (WBC) differential - 08/06/17 05:25 Blood leukocytes automated count (number/volume) 13.8 10*3/uL 4.3-11.0 Blood erythrocytes automated count (number/volume) 4.91 10*6/uL 4.35-5.85 Venous blood hemoglobin measurement (mass/volume) 12.5 g/dL 13.3-17.7 Blood hematocrit (volume fraction) 40 % 40-54 Automated erythrocyte mean corpuscular volume 82 [foz_us] 80-99 Automated erythrocyte mean corpuscular hemoglobin (mass per erythrocyte) 26 pg 25-34 Automated erythrocyte mean corpuscular hemoglobin concentration measurement ( mass/volume) 31 g/dL 32-36 Automated erythrocyte distribution width ratio 17.1 % 10.0-14.5 Automated blood platelet count (count/volume) 403 10*3/uL 130-400 Automated blood platelet mean volume measurement 10.0 [foz_us] 7.4-10.4 Automated blood neutrophils/100 leukocytes 67 % 42-75 Automated blood lymphocytes/100 leukocytes 18 % 12-44 Blood monocytes/100 leukocytes 10 % 0-12 Automated blood eosinophils/100 leukocytes 5 % 0-10 Automated blood basophils/100 leukocytes 0 % 0-10 Blood neutrophils automated count (number/volume) 9.2 10*3 1.8-7.8 Blood lymphocytes automated count (number/volume) 2.5 10*3 1.0-4.0 Blood monocytes automated count (number/volume) 1.3 10*3 0.0-1.0 Automated eosinophil count 0.7 10*3/uL 0.0-0.3 Automated blood basophil count (count/volume) 0.1 10*3/uL 0.0-0.1 Comprehensive metabolic panel - 08/06/17 05:25 Serum or plasma sodium measurement (moles/volume) 138 mmol/L 135-145 Serum or plasma potassium measurement (moles/volume) 4.3 mmol/L 3.6-5.0 Serum or plasma chloride measurement (moles/volume) 105 mmol/L 98-107 Carbon dioxide 24 mmol/L 21-32 Serum or plasma anion gap determination (moles/volume) 9 mmol/L 5-14 Serum or plasma urea nitrogen measurement (mass/volume) 25 mg/dL 7-18 Serum or plasma creatinine measurement (mass/volume) 0.97 mg/dL 0.60-1.30 Serum or plasma urea nitrogen/creatinine mass ratio 26 NRG Serum or plasma creatinine measurement with calculation of estimated glomerular filtration rate > NRG Serum or plasma glucose measurement (mass/volume) 106 mg/dL 70-105 Serum or plasma calcium measurement (mass/volume) 9.9 mg/dL 8.5-10.1 Serum or plasma total bilirubin measurement (mass/volume) 0.8 mg/dL 0.1-1.0 Serum or plasma alkaline phosphatase measurement (enzymatic activity/volume) 110 U/L 40-136 Serum or plasma aspartate aminotransferase measurement (enzymatic activity/ volume) 17 U/L 5-34 Serum or plasma alanine aminotransferase measurement (enzymatic activity/volume ) 12 U/L 0-55 Serum or plasma protein measurement (mass/volume) 7.0 g/dL 6.4-8.2 Serum or plasma albumin measurement (mass/volume) 4.0 g/dL 3.2-4.5 Serum or plasma troponin i.cardiac measurement (mass/volume) - 08/06/17 05:25 Serum or plasma troponin i.cardiac measurement (mass/volume) < ng/ mL <0.30 Encounters ACCT No. Visit Date/Time Discharge Status Pt. Type Provider Facility Loc./Unit Complaint [id number] 08/25/2017 08:10:00 08/25/2017 10:59:00 DIS Outpatient Kareen ROBLES MD [facility] AFIB W/RVR [id number] 08/05/2017 16:59:00 08/08/2017 13:45:00 DIS Inpatient Kareen ROBLES MD [facility] 4TH AFIB [id number] 06/30/2017 07:53:00 06/30/2017 23:59:59 CLS Outpatient Kareen ROBLES MD [facility] AF [id number] 04/13/2017 08:12:00 04/13/2017 14:00:00 DIS Outpatient KASEY VALDES MD [facility] ATRIAL FIBRILLATION [id number] 03/09/2017 11:21:00 03/09/2017 23:59:59 CLS Outpatient MARCIN LEBRON APRN [facility] RT SOB R06.02 [id number] 03/01/2017 14:54:00 03/01/2017 23:59:59 CLS Outpatient MARCIN LEBRON APRN [facility] LAB J45.909 J44.9 R06.02 [id number] 02/07/2017 06:40:00 02/07/2017 13:20:00 DIS Outpatient KASEY VALDES MD [facility] ABNORMAL STRESS TEST,CP, AFIB,SOB,CHF [id number] 02/02/2017 12:07:00 02/02/2017 23:59:59 CLS Outpatient KASEY VALDES MD [facility] CARD I48.91;I50.9;J44.9;R07.9 ;R06.02 [id number] 01/27/2017 20:47:00 01/28/2017 06:55:00 DIS Outpatient KASEY VALDES MD [facility] SLEEP CÉSAR [id number] 01/15/2017 19:15:00 01/16/2017 06:55:00 DIS Outpatient KASEY VALDES MD [facility] SLEEP CÉSAR [id number] 12/02/2016 12:10:00 12/03/2016 15:50:00 DIS Inpatient GIUSEPPE RAMIREZ MD [facility] ICU A FIB WITH RVR;CHF;CHEST PAIN;COPD [id number] 10/04/2015 23:52:00 10/07/2015 13:10:00 DIS Inpatient RADHA CARMEN MD [facility] 4TH PYELONEPHRITIS WITH SEPSIS; HYPOXIA; NEW ONSET [id number] 09/18/2015 16:54:00 09/19/2015 11:00:00 DIS Inpatient RADHA CARMEN MD [facility] 4TH UTI,SEVERE TINEA CRURIS, ABD PX, JASON GARNERENTI [id number] 05/27/2017 09:00:00 05/27/2017 23:59:59 CLS Outpatient LADY CARPENTER APRN
--- NOTE | 2017-08-25 13:23 | Anesthesia-General Post-Op ---
MAC Patient Condition Mental Status/LOC: Same as Preop Cardiovascular: Satisfactory Nausea/Vomiting: Absent Respiratory: Satisfactory Pain: Controlled Complications: Absent Post Op Complications Complications None Follow Up Care/Instructions Patient Instructions None needed. Anesthesiology Discharge Order Discharge Order Patient was doing well, no complaints, stable vital signs, no apparent adverse anesthesia problems after the procedure. VY JOHNSTON DO Aug 25, 2017 13:23
== END 2017-08-25 10:59 | disposition home or self-care (01) ==
LOC: CATH 08:10
PROVIDERS: ATTEND Internal Medicine Interventional Cardiology
DX: I48.0 Paroxysmal atrial fibrillation (principal); J44.9 Chronic obstructive pulmonary disease, unspecified; G47.30 Sleep apnea, unspecified; F12.90 Cannabis use, unspecified, uncomplicated; F17.210 Nicotine dependence, cigarettes, uncomplicated; E66.01 Morbid (severe) obesity due to excess calories; Z68.43 Body mass index [BMI] 50.0-59.9, adult; Z79.01 Long term (current) use of anticoagulants; Z79.899 Other long term (current) drug therapy; Z79.82 Long term (current) use of aspirin; Z79.84 Long term (current) use of oral hypoglycemic drugs
CPT/HCPCS: 92960; 93005

== ENCOUNTER 2018-11-17 19:22 | Outpatient (CLI) | payer MEDICARE, OTHER ==
[~2018-11-17 19:22] MED LIST changes: +METF-397 PO; -METF500T5 PO; -RIVA20TA PO; +RIVA20TA2 PO; -SOTA80TA PO; +STL80T PO; +VERA100C4 PO
== END 2018-11-18 06:49 | disposition home or self-care (01) ==
LOC: RAD 19:22
PROVIDERS: ATTEND Nurse Practitioner Family
DX: G47.33 Obstructive sleep apnea (adult) (pediatric) (principal); J44.9 Chronic obstructive pulmonary disease, unspecified; G47.10 Hypersomnia, unspecified; F17.201 Nicotine dependence, unspecified, in remission; G47.50 Parasomnia, unspecified; I48.0 Paroxysmal atrial fibrillation
CPT/HCPCS: 95811

== ENCOUNTER → 2018-11-27 | Outpatient (CLI) | payer MEDICARE, OTHER ==
[~2018-11-27] MED LIST changes: +RT-ALBUTEROL SULF 2.5 MG/3 ML PRE-MIX VIAL INH ONE
== END ==
LOC: RAD 09:28
PROVIDERS: ATTEND Nurse Practitioner Family
DX: J44.9 Chronic obstructive pulmonary disease, unspecified (principal); G47.10 Hypersomnia, unspecified; F17.201 Nicotine dependence, unspecified, in remission; G47.33 Obstructive sleep apnea (adult) (pediatric); G47.50 Parasomnia, unspecified; I48.0 Paroxysmal atrial fibrillation
CPT/HCPCS: 94060; 94726; 94729

== ENCOUNTER 2019-01-25 12:30 | Outpatient (CLI) | payer MEDICARE ==
[~2019-01-25] VITALS: Ht 175.3 cm; Wt 211.4 kg
[~2019-01-25 12:30] MED LIST changes: -RT-ALBUTEROL SULF 2.5 MG/3 ML PRE-MIX VIAL INH ONE; +SIMV40TA4 PO; +SOTA80TA23 PO; +VERA240T14 PO
== END 2019-01-25 13:11 | disposition home or self-care (01) ==
LOC: PREOP 12:30
PROVIDERS: ATTEND Surgery
DX: Z01.818 Encounter for other preprocedural examination (principal)

== ENCOUNTER 2019-01-29 09:08 | Day surgery (SDC) | payer MEDICARE, OTHER ==
[~2019-01-29] VITALS: Ht 175.3 cm; Wt 211.8 kg
[~2019-01-29 09:08] MED LIST changes: +LACTATED RINGERS 1,000 ML IV ONE
[2019-01-29] MEDS ORDERED: PROPOFOL INJECTION 50 ML IV ONE (09:20)
[2019-01-29] MEDS ORDERED: MIDAZOLAM 2 MG/2 ML (VERSED) VIAL ONE (09:21)
[2019-01-29] MEDS ORDERED: LACTATED RINGERS 1,000 ML IV STA (09:54)
[2019-01-29 09:55] VITALS: BP 132/59
--- NOTE | 2019-01-29 10:19 | Progress Note-Pre Operative ---
Pre-Operative Progress Note H&P Reviewed The H&P was reviewed, patient examined and no changes noted. Time Seen by Provider: 10:13 Date H&P Reviewed: Jan 29, 2019 Time H&P Reviewed: 10:11 Pre-Operative Diagnosis: Screening Colonoscopy MAGDALENA ATKINSON DO Jan 29, 2019 10:19
[2019-01-29] MEDS ORDERED: GABA-488 PO (10:36)
[2019-01-29] MEDS ORDERED: RT-ALBUINH IH (10:36)
[2019-01-29] MEDS ORDERED: KETAMINE/NaCl 50 MG/5 ML SYRINGE ONE ×2 (10:54→11:11)
[2019-01-29] MEDS ORDERED: LIDOCAINE PF 2% 5 ML (XYLOCAINE) VIAL ONE (10:54)
--- NOTE | 2019-01-29 11:28 | Progress Note-Post Operative ---
Post-Operative Progess Note Surgeon (s)/Camp Dishwasher (s) Surgeon MAGDALENA ATKINSON DO Camp Dishwasher: Claudia Rosales MSIII Pre-Operative Diagnosis Screening Colonoscopy Post-Operative Diagnosis colon polyps internal hemorrhoids Procedure & Operative Findings Date of Procedure 01/29/19 Procedure Performed/Findings Colon with snare Anesthesia Type IV sedation by VERIFIER Estimated Blood Loss Estimated blood loss (mL): scant Specimens/Packing Specimens Removed Colon polyps MAGDALENA ATKINSON DO Jan 29, 2019 11:28
--- NOTE | 2019-01-29 11:29 | Endoscopy Discharge Instruct ---
Endo Procedure/Findings Findings 1.: Polyp 2.: Internal Hemorrhoids Discharge Instructions - Activity: You might feel a little sleepy until tomorrow. This is due to the medicine you received to relax you. Until tomorrow, you should: NOT drive a car, operate machinery or power tools. NOT drink any alcoholic beverages. NOT make any important decisions or sign importortant papers. Do not return to work until tomorrow, unless otherwise instructed. Resume previous activities tomorrow. Diet: Start by taking liquids. If you tolerate liquids, advance to solid food. make appointment for one week 1.: Colonscopy in 3 years Notify Physician - If you experience excessive bleeding, unusual abdominal pain, fever, or chest pain, contact your doctor immediately. MAGDALENA ATKINSON DO Jan 29, 2019 11:29
[2019-01-29 11:30] VITALS: BP 150/92
[2019-01-29 11:35] VITALS: BP 150/92
[2019-01-29 12:00] VITALS: BP 154/88
[2019-01-29 12:25] VITALS: BP 154/88
--- NOTE | 2019-01-29 15:32 | Anesthesia-General Post-Op ---
MAC Patient Condition Mental Status/LOC: Same as Preop Cardiovascular: Satisfactory Nausea/Vomiting: Absent Respiratory: Satisfactory Pain: Controlled Complications: Absent Post Op Complications Complications None Follow Up Care/Instructions Patient Instructions None needed. Anesthesiology Discharge Order Discharge Order Patient is doing well, no complaints, stable vital signs, no apparent adverse anesthesia problems. No complications reported per nursing. MARTINEZ AGUAYO CRNA Jan 29, 2019 15:32
--- NOTE | 2019-01-29 21:46 | OPERATIVE REPORT ---
DATE OF SERVICE: 01/29/2019 PREOPERATIVE DIAGNOSIS: Screening colonoscopy. POSTOPERATIVE DIAGNOSES: 1. Colon polyps. 2. Internal hemorrhoids. PROCEDURE PERFORMED: Colonoscopy with snare polypectomy. SURGEON: Vasquez Ochoa DO. SCHOOL BUS DRIVER: None. ANESTHESIA: IV sedation by the MANAGER PHP. SPECIMEN: One polyp from the sigmoid colon, two polyps from the descending colon, one cecal polyp and two ascending colon polyps. BLOOD LOSS: Scant. FLUIDS: Per Anesthesia. POSTOPERATIVE CONDITION: Stable. INDICATION FOR PROCEDURE: The patient is a 58-year-old male who has never had a colonoscopy and needs one for screening. FINDINGS: The patient had multiple polyps. He had one in the sigmoid, two in the descending colon, one in the cecum and two in the ascending colon, removed and sent to pathology. PROCEDURE NOTE: After informed consent was obtained, the patient was brought to the endoscopy suite and placed in the left lateral decubitus position. He was administered IV sedation by the MANAGER PHP who monitored his vitals the entire time, heart rate, blood pressure and pulse ox and then inserted the scope and on the way in, noted a large polyp in the sigmoid colon, did snare polypectomy of this, continued up and just passed this into the descending colon, saw another large polyp, did another snare polypectomy and continued all the way to about 150 cm, prior 160 cm, able to get to the cecum, took a picture of appendiceal orifice and then noted a polyp in the cecum, did another snare polypectomy of this and then slowly withdrew the scope insufflating to look circumferentially at the chicas looking the cecum, up into the ascending colon. In the ascending colon, saw two large flat polyps just slightly away from each other, did snare polypectomies of both of these, suctioned them up and then up to the hepatic flexure, then down the transverse colon, the splenic flexure, then into the descending colon. In the descending colon, saw another flat polyp, did another snare polypectomy and then continued down into the sigmoid colon into the rectum. In the rectal vault, retroflexed the scope and then saw some internal hemorrhoids, took a picture of this and then removed the scope. The patient tolerated the procedure, recovered in endoscopy suite. Job ID: [id number] DocumentID: [id number] Dictated Date: 01/29/2019 17:36:00 Web Services Architect Date: 01/29/2019 21:44:47 Dictated By: VASQUEZ OCHOA DO
== END 2019-01-29 12:25 | disposition home or self-care (01) ==
LOC: ENDO 09:08
PROVIDERS: ATTEND Surgery
DX: Z12.11 Encounter for screening for malignant neoplasm of colon (principal); D12.0 Benign neoplasm of cecum; D12.2 Benign neoplasm of ascending colon; D12.4 Benign neoplasm of descending colon; D12.5 Benign neoplasm of sigmoid colon; K64.8 Other hemorrhoids; I11.0 Hypertensive heart disease with heart failure; I50.9 Heart failure, unspecified; J43.9 Emphysema, unspecified; E66.2 Morbid (severe) obesity with alveolar hypoventilation; I48.0 Paroxysmal atrial fibrillation; F17.210 Nicotine dependence, cigarettes, uncomplicated; I73.9 Peripheral vascular disease, unspecified; F41.9 Anxiety disorder, unspecified; Z68.44 Body mass index [BMI] 60.0-69.9, adult; Z90.49 Acquired absence of other specified parts of digestive tract; Z83.3 Family history of diabetes mellitus; Z82.49 Family history of ischemic heart disease and other diseases of the circulatory system; Z80.9 Family history of malignant neoplasm, unspecified; Z88.3 Allergy status to other anti-infective agents; Z91.013 Allergy to seafood; Z79.84 Long term (current) use of oral hypoglycemic drugs; Z79.02 Long term (current) use of antithrombotics/antiplatelets; Z79.899 Other long term (current) drug therapy
CPT/HCPCS: 82962; 88305

== ENCOUNTER → 2019-06-12 | Outpatient (CLI) | payer MEDICARE, OTHER ==
--- NOTE | 2018-11-27 12:49 | Diagnostic Imaging Report ---
PROCEDURE: CT chest without contrast. TECHNIQUE: Multiple contiguous axial images were obtained through the chest without the use of intravenous contrast. Auto Exposure Controls were utilized during the CT exam to meet ALARA standards for radiation dose reduction. INDICATION: Shortness of breath. COMPARISON: No prior studies are available for comparison. FINDINGS: No axillary lymphadenopathy is seen. A right paratracheal lymph node measures 11 mm. Mee are difficult to evaluate without intravenous contrast. There are coronary arterial calcifications present. No pericardial or pleural fluid is identified. There are centrilobular emphysematous changes in the upper lobes. Semisolid densities in the right upper lobe are seen adjacent to the major fissure. The more anterior opacity is 14 mm. Posterior to this, there are two additional somewhat semisolid densities measuring 14 mm and 17 mm. Tiny subpleural nodules more cephalad in the right lower lobe are noted. There is a 5 mm subpleural density in the left upper lobe. Tiny nodule in the superior segment of the right lower lobe measures 4 mm. IMPRESSION: Centrilobular emphysematous changes. There are several nodular densities which are indeterminate. The larger semisolid densities are somewhat flat and appear to involve the major and minor fissure. Follow-up in six months is recommended to confirm stability. No other significant abnormality is seen. Dictated by: Dictated on workstation # [id number]
[~2019-06-12] MED LIST changes: +HOLD METFORMIN - RECEIVED CONTRAST 20 ML VIAL IV SCH; -IBUP-2055 PO; +IBUP-2473 PO; +IOHEXOL 350 MG/ML 100 ML (OMNIPAQUE 350) VIAL IV ONE; -LACTATED RINGERS 1,000 ML IV ONE; +METF500T19 PO; -METF500T8 PO; +NS 100 ML (IVPB) BAG IV ONE; +SIMV20TA26 PO; -SIMV20TA3 PO; +SIMV40TA25 PO; -SIMV40TA4 PO
[2019-06-12 09:29] LABS: BUN/CREATININE RATIO 29; CREATININE SERUM 0.83 MG/DL (0.60-1.30); GFR ESTIMATED > 60
== END ==
LOC: RAD 08:49
PROVIDERS: ATTEND Nurse Practitioner Family
DX: J43.9 Emphysema, unspecified (principal); R91.8 Other nonspecific abnormal finding of lung field; I48.0 Paroxysmal atrial fibrillation; G47.50 Parasomnia, unspecified; G47.10 Hypersomnia, unspecified; G47.33 Obstructive sleep apnea (adult) (pediatric); G47.36 Sleep related hypoventilation in conditions classified elsewhere; F17.201 Nicotine dependence, unspecified, in remission
CPT/HCPCS: 36415; 71250; 82565; 84520

== ENCOUNTER → 2019-10-29 | Outpatient (CLI) | payer MEDICARE ==
[~2019-10-29] MED LIST changes: -HOLD METFORMIN - RECEIVED CONTRAST 20 ML VIAL IV SCH; -IOHEXOL 350 MG/ML 100 ML (OMNIPAQUE 350) VIAL IV ONE; +METF-865 PO; -METF500T19 PO; -NS 100 ML (IVPB) BAG IV ONE; -VERA100C4 PO; +[UNRECOGNIZED DRUG - CODE] PO
== END ==
LOC: LABNPT 07:04
PROVIDERS: ATTEND Internal Medicine Interventional Cardiology
DX: Z01.818 Encounter for other preprocedural examination (principal); Z20.828 Contact with and (suspected) exposure to other viral communicable diseases
CPT/HCPCS: 87635

== ENCOUNTER 2019-11-02 07:07 | Day surgery (SDC) | payer MEDICARE, OTHER ==
[2019-11-02] MEDS ORDERED: NS IV 1000 ML 1,000 ML IV SCH (07:10)
[2019-11-02] MEDS ORDERED: LIDOCAINE 1% INJ 20 ML 20 ML VIAL ONE (07:11)
[2019-11-02] MEDS ORDERED: HEParin (CATH LAB) 0 ML IV ONE (07:11)
[2019-11-02] MEDS ORDERED: NS IV 1000 ML 0 ML ONE (07:11)
[2019-11-02] MEDS ORDERED: ISOPROTERENOL 0.2 MG/D5W 50 ML IV ONE (07:15)
--- NOTE | 2019-11-02 07:41 | NUR ---
PT OVER BED LIMIT, WEIGHED UPON ARRIVAL AT [address] NOTIFIED, PROCEDURE CANCELED
== END 2019-11-02 07:43 | disposition home or self-care (01) ==
LOC: CATH 07:07
PROVIDERS: ATTEND Internal Medicine Interventional Cardiology
DX: I48.92 Unspecified atrial flutter (principal); I48.91 Unspecified atrial fibrillation; Z53.9 Procedure and treatment not carried out, unspecified reason

== ENCOUNTER → 2020-09-17 | Outpatient (CLI) | payer MEDICARE, OTHER ==
[~2020-09-17] MED LIST changes: +ASPI-1238 PO; -ASPI-983 PO; -CIPR500T4 PO; +CIPR500T5 PO; -DRON400T2 PO; +DRON400T6 PO; -LISI-552 PO; +LISI20TA26 PO
--- NOTE | 2020-09-17 12:28 | Diagnostic Imaging Report ---
PROCEDURE: CT chest without contrast. TECHNIQUE: Multiple contiguous axial images were obtained through the chest without the use of intravenous contrast. Auto Exposure Controls were utilized during the CT exam to meet ALARA standards for radiation dose reduction. INDICATION: Abnormal findings on previous diagnostic imaging. FINDINGS: CHEST: Comparison is made to 11/27/2018. The findings of groundglass nodular densities juxta fissural in the right lower lung have resolved. A few micronodules subpleural in the upper lobes are stable, chronic, and felt benign. There is heterogeneous air trapping and features of centrilobular emphysema with no bronchiectasis, blebs, bullous disease, or air cysts. No suspicious lung mass. No pathological thoracic lymph node. The atherosclerotic aorta is nonaneurysmal. There are coronary artery atherosclerotic vascular calcifications. No acute chest wall pathology. The visualized upper abdomen shows a partially visualized right renal cyst and no acute pathology. IMPRESSION: Resolution of the dominant right lower lung juxta fissural groundglass nodules. No suspicious lung mass. A few subpleural micronodules measuring 3 to 4 mm are chronic. No findings of neoplasm, pneumonia, effusion, or other acute abnormalities. Dictated by: Dictated on workstation # [id number]
== END ==
LOC: RAD 11:39
PROVIDERS: ATTEND Internal Medicine Critical Care Medicine
DX: R91.8 Other nonspecific abnormal finding of lung field (principal)
CPT/HCPCS: 71250